=== PATIENT | female | born 1990 | race Caucasian/White ===

== ENCOUNTER 2024-01-15 08:10 | Inpatient (IN) | payer SELFPAY ==
--- OUTSIDE RECORDS SUMMARY | 2024-01-15 08:13 | XMS REPORT | Continuity of Care Document ---
Author Name Unknown Address [address] [place] [address] [address] th[address] Address [address] [facility]. 1 [address] [place] [address] Care Team Providers Care Community Marketing Manager Name Role Phone PCP, PATIENT DOES NOT HAVE A Primary Care Physic nicole Unavailable BINDU CRESPO Attending Clinician Unavailable JOSUE QUACH Attending Clinician Unavailable JOSUE QUACH Attending Clinician Unavailable MELVIN SÁNCHEZ Attending Clinician Unavailable JULITA ZARCO Attending Clinician Unavailable CORINE CHAPA Attending Clinician UnavailEARL Hugo Admitting Clinician UnavailJOSUE Sanchez Admitting Clinician Unavailable Payers Payer Name Policy Type Policy Number Effective Date Expirati on Date Source [facility] MEDICAID [id number] 2019 00:00:00 Allergies, Adverse Reactions, Alerts Allergy Name Allergy Type Status Severity Reaction(s) Onset Date Inactive Date Treating Clinician Comments Source NO KNOWN ALLERGIE S Drug Class Active [facility] Encounters Start Date/Time End Date/Time Encounter Type Admission Type Attending Clinicians Care Facility Care Department Encounter ID Source 2020-12-11 07:28:39 Outpatient P [facility] [id number] [facility] 2020-12-11 07:28:02 Outpatient P [facility] [id number] [facility] 2020-12-11 00:26:53 Outpatient P [facility] [id number] [facility] 2024-01-08 11:00:00 2024-01-08 11:00:00 Outpatient BINDU CHAIDEZ [facility] [id number] [facility] 2024-01-05 09:30:00 2024-01-05 09:30:00 Outpatient R JOSUE QUACH JOSUE [facility] [id number] [facility] 2020-04-13 10:30:00 2020-04-13 10:30:00 Outpatient R MELVIN SÁNCHEZ [facility] [id number] [facility] 2019-10-14 11:15:00 2019-10-14 11:15:00 Outpatient R MELVIN SÁNCHEZ [facility] [id number] [facility] 2019-09-30 10:45:00 2019-09-30 10:45:00 Outpatient R QUACH JOSUE [facility] [id number] [facility] 2019-09-27 14:15:00 2019-09-27 14:15:00 Outpatient R PHILOMENA JOSUE [facility] [id number] [facility] 2019-09-24 14:30:00 2019-09-24 14:30:00 Outpatient R [facility] [id number] [facility] 2019-09-09 14:15:00 2019-09-09 14:15:00 Outpatient R [facility] [id number] [facility] 2019-09-04 15:15:00 2019-09-04 15:15:00 Outpatient R PHILOMENA JOSUE [facility] [id number] [facility] 2019-08-28 11:15:00 2019-08-28 11:15:00 Outpatient R MELVIN SÁNCHEZ [facility] [id number] [facility] 2019-08-22 11:00:00 2019-08-22 11:00:00 Outpatient R [facility] [id number] [facility] 2019-08-20 13:00:00 2019-08-20 13:00:00 Outpatient JOSUE LYNCH [facility] [id number] [facility] 2019-08-02 11:30:00 2019-08-02 11:30:00 Outpatient R MELVIN SÁNCHEZ [facility] [id number] [facility] 2019-07-24 11:51:00 2019-07-24 15:00:00 Outpatient [facility] [id number] [facility] 2019-07-24 11:15:00 2019-07-24 11:15:00 Outpatient R JOSUE QUACH [facility] [id number] [facility] 2019-07-17 13:00:00 2019-07-17 13:00:00 Outpatient R JOSUE QUACH [facility] [id number] [facility] 2019-07-01 11:30:00 2019-07-01 11:30:00 Outpatient R MELVIN SÁCNHEZ [facility] [id number] [facility] 2019-06-25 13:15:00 2019-06-25 13:15:00 [facility] [id number] 2019-06-14 11:00:00 2019-06-14 11:00:00 Outpatient R [facility] [id number] [facility] 2019-05-23 13:15:00 2019-05-23 13:15:00 [facility] [id number] [facility] 2019-05-20 10:00:00 2019-05-20 10:00:00 Outpatient P [facility] [id number] [facility] 2019-05-17 14:00:00 2019-05-17 14:00:00 Outpatient P [facility] [id number] [facility] 2019-05-10 11:00:00 2019-05-10 11:00:00 Outpatient P [facility] [id number] [facility] 2019-05-09 10:40:00 2019-05-09 10:40:00 Outpatient R JULITA ZARCO [facility] [id number] [facility] 2019-05-08 18:45:00 2019-05-08 18:45:00 Outpatient R CORINE CHAPA [facility] [id number] [facility] 2019-05-03 14:00:00 2019-05-03 14:00:00 Outpatient P [facility] [id number] [facility] 2019-04-25 13:15:00 2019-04-25 13:15:00 Outpatient JOSUE LYNCH [facility] [id number] [facility]
[2024-01-15] MEDS ORDERED: METHYLPREDNISOLONE 125 MG INJ ONE (08:32)
[2024-01-15] MEDS ORDERED: ALBUTEROL 2.5 MG/3 ML NEB SOL ONE (08:32)
[2024-01-15] MEDS ORDERED: IPRATROPIUM BROM 0.5MG/2.5ML ONE (08:32)
[2024-01-15 08:56] LABS: Absolute Lymphocytes (CBC) 1.4 K/uL (0.7-4.9); Absolute Monocytes 0.7 K/uL (0.1-1.3); Absolute Neutrophil 6.7 K/uL (1.8-8.0); Basophils % 0.5 % (0-1.3); Eosinophils % 0.3 % (0-4.4); Hematocrit 38.1 % (36.0-45.0); Hemoglobin 12.3 g/dL (12.0-15.0); Lymphocytes % 15.9 % (15.3-44.8); MCH 25.7 pg (27.0-35.0); MCHC 32.4 g/dL (32.0-36.0); MCV 79.4 fL (80-100); Monocytes % 7.7 % (3.3-12.3); Neutrophils % 75.6 % (41.7-73.7); Platelets 372 thou/uL (152-406); Red Cell Distribution Width 14.8 % (12.1-15.2)
[2024-01-15 09:15] LABS: Anion Gap 10.4 mEq/L (5.0-15.0); Magnesium 1.8 mg/dL (1.6-2.4); Potassium 3.4 mEq/L (3.5-5.1)
[2024-01-15 09:19] LABS: SARS-CoV-2 Antigen CONTROL BLUE LINE VIS/BG OK; SARS-CoV-2 Antigen Rapid Res Negative (Negative)
--- NOTE | 2024-01-15 09:33 | RAD REPORT ---
Procedure: Chest Pa And Lat (2 Views) HISTORY: Cough COMPARISON: none FINDINGS: The lungs appear clear of acute infiltrate. No significant pleural effusion noted. The heart is normal size. IMPRESSION: No acute abnormality is displayed.
[2024-01-15] MEDS ORDERED: NA CHLORIDE 0.9% 1,000 ML ONE (09:58)
[2024-01-15 10:18] LABS: Specific Gravity 1.028 (1.005-1.030)
--- NOTE | 2024-01-15 10:31 | EDPHYS ---
Physician Documentation [facility] Name: Aishwarya Munoz Age: 33 yrs Sex: Female : 1990 Arrival Date: 01/15/2024 Time: 08:10 Bed 16 Private MD: ED Physician Waldemar Cook HPI: 01/14 08:26 This 33 yrs old Female presents to ER via Ambulatory with complaints of Shortness Of sb4 Breath, Cough. 08:26 patient reports feeling sick for about 1 week now but is not getting any better. now sb4 feels short of breath with minimal exertion. reports deep, painful, nonproductive cough. denies any sore throat, ear pain, GI symptoms. had similar symptoms and was diagnosed with bronchitis. has been taking dayquil and flovent without significant relief in symptms. 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 - Infectious Disease History:: Denies. - Social history:: Smoking status: Reported history of juuling and/or vaping. ROS: 08:26 Constitutional: Negative for fever, chills, and weight loss, sb4 08:26 Respiratory: Positive for cough, dyspnea on exertion, shortness of breath, 08:26 All other systems are negative, Exam: 08:26 Head/Face: Normocephalic, atraumatic. Eyes: Extra-ocular motions intact. Periorbital sb4 areas with no swelling, redness, or edema. ENT: Mucous membranes moist. 08:26 Skin: Warm, dry with normal turgor. Normal color with no rashes, no lesions, and no evidence of cellulitis. 08:26 Constitutional: The patient appears alert, awake, obese, 08:26 Cardiovascular: Rate: tachycardic, Rhythm: regular, 08:26 Respiratory: mild respiratory distress is noted, Respirations: tachypnea, that is mild, Breath sounds: bronchial sounds, that are moderate, are heard in the right posterior upper lobe, right posterior middle lobe and right posterior lower lobe, Respiratory rate: 20 Vital Signs: 08:15 BP 150 / 80; Pulse 122; Resp 20 S; Temp 97.4; Pulse Ox 94% on R/A; Weight 182.34 kg; iw Height 5 ft. 5 in. ; 08:50 BP 145 / 73; Pulse 112; Resp 19 S; Pulse Ox 93% on R/A; kc6 10:08 Weight 183.7 kg (M); kc6 10:12 BP 118 / 73; Pulse 115; Resp 20 S; Pulse Ox 93% on 2.5 lpm NC; kc6 11:18 BP 128 / 71; Pulse 105; Resp 19 S; Pulse Ox 93% on 2.5 lpm NC; kc6 13:16 BP 124 / 79; Pulse 100; Resp 19 S; Temp 98.2(O); Pulse Ox 94% on 2.5 lpm NC; kc6 08:15 Body Mass Index 66.90 (183.70 kg, 165.1 cm) iw MDM: 08:18 Medical Screening Exam initiated sb4 10:29 Antibiotic administration: Rocephin and Zithromax given. The patient's pulmonary sb4 embolism risk score was calculated as follows: the patients heart rate is greater than 100 beats per minute (1.5 Pts) Total Score: 0-2 points. This patient was found to be at low risk for a pulmonary embolism by using the Well's assessment criteria. Data reviewed: vital signs, nurses notes, lab test result(s), radiologic studies, I have discussed the patient's presentation/case with the attending Emergency Department Physician; and as a result, I will admit patient. Consideration of Admission/Observation Patient was admitted/placed on observation. Counseling: I had a detailed discussion with the patient and/or guardian regarding the historical points, exam findings, and any diagnostic results supporting the discharge/admit diagnosis, lab results, radiology results, the need for further work-up and treatment in the hospital. 10:54 Test considered but Not performed: CT: patient is over the weight limit. Other Details sb4 VQ scan- patient is over the weight limit and nuclear medicine is unavailable today. Care significantly affected by the following chronic conditions: Obesity. 01/14 08:26 Order name: CBC with Diff; Complete Time: 08:57 sb4 01/14 08:26 Order name: BMP; Complete Time: 09:16 sb4 01/14 08:26 Order name: Magnesium; Complete Time: 09:16 sb4 01/14 08:26 Order name: Flu; Complete Time: 09:53 sb4 01/14 08:26 Order name: SARS RAPID; Complete Time: 09:23 sb4 01/14 09:35 Order name: Test, Urine; Complete Time: 10:20 sb4 01/14 10:13 Order name: DD; Complete Time: 11:35 sb4 01/14 10:24 Order name: Blood Culture Adult (2) sb4 01/14 10:24 Order name: Lactate w/ 2H reflex if indic.; Complete Time: 11:42 sb4 01/14 10:24 Order name: LFT's; Complete Time: 11:42 sb4 01/14 11:25 Order name: Protime (+INR); Complete Time: 11:35 EDMS 01/14 11:25 Order name: PTT, Activated Partial Thromb; Complete Time: 11:35 EDMS 01/14 11:53 Order name: Urinalysis w/ reflexes EDMS 01/14 11:54 Order name: Respiratory Syncytial Virus Ag EDMS 01/14 11:54 Order name: Basic Metabolic Panel EDMS 01/14 11:54 Order name: Basic Metabolic Panel EDMS 01/14 11:54 Order name: CBC with Automated Diff EDMS 01/14 11:54 Order name: CBC with Automated Diff EDMS 01/14 11:57 Order name: Urinalysis w/ reflexes EDMS 01/14 11:59 Order name: Procalcitonin EDMS 01/14 11:59 Order name: Procalcitonin; Complete Time: 14:09 EDMS 01/14 08:26 Order name: Chest Pa And Lat (2 Views) XRAY; Complete Time: 09:34 sb4 01/14 08:26 Order name: IV Start; Complete Time: 08:50 sb4 Administered Medications: 08:50 Drug: DuoNeb Nebulize (3:1) (2.5 mg - 0.5 mg) 3 ml Nebulizer once Route: Nebulizer; kc6 13:17 Follow up: Response: No adverse reaction kc6 08:50 Drug: MethylPrednisoLONE IVP 125 mg IVP once Route: IVP; Site: left hand; kc6 13:17 Follow up: Response: No adverse reaction kc6 10:08 Drug: NS 0.9% IV 1000 ml IV at 1000 ml once; to be given as a bolus over 60 minutes kc6 Route: IV; Rate: 1000 ml; Site: left hand; 13:17 Follow up: Response: No adverse reaction; IV Status: Completed infusion; IV Intake: kc6 1000ml 11:16 Drug: AZITHromycin IVPB 500 mg IVPB once over 1 hrs; (mix in 250 mL NS) Route: IVPB; kc6 Infused Over: 1 hrs; Site: left hand; 13:15 Follow up: Response: No adverse reaction; IV Status: Completed infusion; IV Intake: kc6 250ml 11:16 Drug: Rocephin IV 1 grams IV at calculated rate once; Given slow IV push per pharmacy kc6 instructions Route: IV; Rate: calculated rate; Site: left hand; 13:15 Follow up: Response: No adverse reaction; IV Status: Completed infusion; IV Intake: [id number] Disposition: 16:27 I was immediately available on-site in the Emergency Department for consultation in the sd3 care of the patient. Disposition Summary: 01/15/24 10:31 Hospitalization Ordered Notes: Hospitalization Status: Inpatient Admission sb4 Provider: Marilyn Cruz sb4 Condition: Fair sb4 Problem: new sb4 Symptoms: are unchanged sb4 Bed/Room Type: Standard sb4 Location: Telemetry/MedSurg (Inpatient)(01/15/24 13:29) kb3 Room Assignment: 205(01/15/24 13:50) bd Diagnosis - Hypoxemia sb4 - Other pneumonia, unspecified organism sb4 - Morbid (severe) obesity due to excess calories sb4 Forms: - Medication Reconciliation Form sb4 - SBAR form sb4 - Leadership Thank You Letter sb4 Signatures: Dispatcher [employer] EDMS Donya Melendez Irene, RN RN iw Sims, Marcus, DO DO ms3 Arielle Rivera RN RN kc6 Casandra Luke RN RN kb3 Doreen Townsend PA-C PARocio sb4 Corrections: (The following items were deleted from the chart) 08:26 08:26 CBC+H.LAB.BRZ ordered. EDMS EDMS 08:26 08:26 BASIC METABOLIC PANEL+C.LAB.BRZ ordered. EDMS EDMS 08:26 08:26 MAGNESIUM+C.LAB.BRZ ordered. EDMS EDMS 08: 08:26 Influenza Screen (A \T\ B)+BA.LAB.BRZ ordered. EDMS EDMS 08: 08:26 SARS-COV-2 Antigen Rapid+I.LAB.BRZ ordered. EDMS EDMS 08: 08:26 Chest Pa And Lat (2 Views)+RAD.RAD.BRZ ordered. EDMS EDMS 09:52 09:35 Thorax Wo Con+CT.RAD.BRZ ordered. EDMS EDMS 11:23 10:24 PROTIME (+INR)+COAG.LAB.BRZ ordered. EDMS EDMS 11:23 10:24 PTT, ACTIVATED+COAG.LAB.BRZ ordered. EDMS EDMS 12:59 10:31 Telemetry/MedSurg (Inpatient) sb4 bd 12:59 10:31 sb4 bd 13:29 12:59 BR ER HOLD bd kb3 13:29 12:59 ERHOLD- bd kb3 13:50 13:29 409 kb3 bd
--- NOTE | 2024-01-15 10:31 | ER ---
Nurse's Notes [facility] Name: Aishwarya Munoz Age: 33 yrs Sex: Female : 1990 Arrival Date: 01/15/2024 Time: 08:10 Bed 16 Private MD: Diagnosis: Hypoxemia;Other pneumonia, unspecified organism;Morbid (severe) obesity due to excess calories Presentation: 01/14 08:15 Chief complaint: Patient states: started Monday with fever, chills, cough, gets SOB on iw exertion. Coronavirus screen: Client presents with at least one sign or symptom that may indicate coronavirus-19. Ebola Screen: No symptoms or risks identified at this time. Initial Sepsis Screen: Does the patient meet any 2 criteria? HR > 90 bpm. Does the patient have a suspected source of infection?. Risk Assessment: Do you want to hurt yourself or someone else? Patient reports no desire to harm self or others. Onset of symptoms was January 07, 2024. 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 - Infectious Disease History:: Denies. - Social history:: Smoking status: Reported history of juuling and/or vaping. Screenin:50 [facility] ED Fall Risk Assessment (Adult) History of falling in the last 3 months, kc6 including since admission No falls in past 3 months (0 pts) Confusion or Disorientation No (0 pts) Intoxicated or Sedated No (0 pts) Impaired Gait No (0 pts) Mobility Assist Device Used No (0 pt) Altered Elimination No (0 pt) Score/Fall Risk Level 0 - 2 = Low Risk Oriented to surroundings, Maintained a safe environment. Abuse screen: Denies threats or abuse. Denies injuries from another. Nutritional screening: No deficits noted. Tuberculosis screening: No symptoms or risk factors identified. Assessment: 08:51 General: Appears in no apparent distress. comfortable, obese, well groomed, well kc6 developed, Behavior is calm, cooperative, appropriate for age. Pain: Denies pain. Neuro: Level of Consciousness is awake, alert, obeys commands, Oriented to person, place, time, situation, Appropriate for age. Cardiovascular: Denies chest pain, Capillary refill < 3 seconds Rhythm is sinus tachycardia. Respiratory: Reports shortness of breath on exertion cough that is non-productive, dry, Airway is patent Trachea midline Respiratory effort is even, unlabored, Respiratory pattern is regular, symmetrical. GI: No signs and/or symptoms were reported involving the gastrointestinal system. : No signs and/or symptoms were reported regarding the genitourinary system. EENT: No signs and/or symptoms were reported regarding the EENT system. Derm: No signs and/or symptoms reported regarding the dermatologic system. Skin is intact, is healthy with good turgor, Skin is pink, warm \T\ dry. Musculoskeletal: No signs and/or symptoms reported regarding the musculoskeletal system. Circulation, motion, and sensation intact. Capillary refill < 3 seconds, Range of motion: intact in all extremities. 09:51 Reassessment: Patient appears in no apparent distress at this time. No changes from kc6 previously documented assessment. Patient and/or family updated on plan of care and expected duration. Pain level reassessed. Patient is alert, oriented x 3, equal unlabored respirations, skin warm/dry/pink. 10:51 Reassessment: Patient appears in no apparent distress at this time. No changes from kc6 previously documented assessment. Patient and/or family updated on plan of care and expected duration. Pain level reassessed. Patient is alert, oriented x 3, equal unlabored respirations, skin warm/dry/pink. 11:51 Reassessment: Patient appears in no apparent distress at this time. No changes from kc6 previously documented assessment. Patient and/or family updated on plan of care and expected duration. Pain level reassessed. Patient is alert, oriented x 3, equal unlabored respirations, skin warm/dry/pink. 12:51 Reassessment: Patient appears in no apparent distress at this time. No changes from kc6 previously documented assessment. Patient and/or family updated on plan of care and expected duration. Pain level reassessed. Patient is alert, oriented x 3, equal unlabored respirations, skin warm/dry/pink. Vital Signs: 08:15 BP 150 / 80; Pulse 122; Resp 20 S; Temp 97.4; Pulse Ox 94% on R/A; Weight 182.34 kg; iw Height 5 ft. 5 in. ; 08:50 BP 145 / 73; Pulse 112; Resp 19 S; Pulse Ox 93% on R/A; kc6 10:08 Weight 183.7 kg (M); kc6 10:12 BP 118 / 73; Pulse 115; Resp 20 S; Pulse Ox 93% on 2.5 lpm NC; kc6 11:18 BP 128 / 71; Pulse 105; Resp 19 S; Pulse Ox 93% on 2.5 lpm NC; kc6 13:16 BP 124 / 79; Pulse 100; Resp 19 S; Temp 98.2(O); Pulse Ox 94% on 2.5 lpm NC; kc6 08:15 Body Mass Index 66.90 (183.70 kg, 165.1 cm) iw ED Course: 08:13 Patient arrived in ED. mg5 08:14 Doreen Townsend PA-C is PHCP. sb4 08:14 Waldemar Cook DO is Attending Physician. sb4 08:16 Triage completed. iw 08:17 Arm band placed on. iw 08:30 Arielle Rivera, LIV is Primary Nurse. kc6 08:50 Patient has correct armband on for positive identification. Bed in low position. Call kc6 light in reach. Side rails up X2. Pulse ox on. NIBP on. Door closed. Noise minimized. Lights dimmed. Pillow given. 08:50 Inserted saline lock: 22 gauge in left hand, using aseptic technique. Blood collected. kc6 Flushed with 10 mL NS. 09:28 Chest Pa And Lat (2 Views) XRAY In Process Unspecified. EDMS 10:08 Test, Urine Sent. kc6 10:30 Marilyn Cruz is Hospitalizing Provider. sb4 13:16 No provider procedures requiring assistance completed. Patient admitted, IV remains in kc6 place. Administered Medications: 08:50 Drug: DuoNeb Nebulize (3:1) (2.5 mg - 0.5 mg) 3 ml Nebulizer once Route: Nebulizer; kc6 13:17 Follow up: Response: No adverse reaction kc6 08:50 Drug: MethylPrednisoLONE IVP 125 mg IVP once Route: IVP; Site: left hand; kc6 13:17 Follow up: Response: No adverse reaction kc6 10:08 Drug: NS 0.9% IV 1000 ml IV at 1000 ml once; to be given as a bolus over 60 minutes kc6 Route: IV; Rate: 1000 ml; Site: left hand; 13:17 Follow up: Response: No adverse reaction; IV Status: Completed infusion; IV Intake: kc6 1000ml 11:16 Drug: AZITHromycin IVPB 500 mg IVPB once over 1 hrs; (mix in 250 mL NS) Route: IVPB; kc6 Infused Over: 1 hrs; Site: left hand; 13:15 Follow up: Response: No adverse reaction; IV Status: Completed infusion; IV Intake: kc6 250ml 11:16 Drug: Rocephin IV 1 grams IV at calculated rate once; Given slow IV push per pharmacy kc6 instructions Route: IV; Rate: calculated rate; Site: left hand; 13:15 Follow up: Response: No adverse reaction; IV Status: Completed infusion; IV Intake: [id number] Medication: 13:16 VIS not applicable for this client. kc6 Intake: 13:15 IV: 250ml; Total: 250ml. kc6 13:15 IV: 10ml; Total: 260ml. kc6 13:17 IV: 1000ml; Total: 1260ml. kc6 Outcome: 10:31 Decision to Hospitalize by Provider. sb4 13:16 Admitted to ER Hold. Please see [facility] for further documentation. kc6 13:16 Condition: good 13:16 Instructed on the need for admit, 15:39 Patient left the ED. iw Signatures: Dispatcher [employer] Latosha Servin RN RN iw Campbell, Kaitlyn, RN RN [email or web address] Doreen Townsend, PADanyellC PA-C sb4 Anai Blanchard mg5 Corrections: (The following items were deleted from the chart) 08:17 08:15 BP 150 / 80; Pulse 122bpm; Resp 20bpm; Spontaneous; Pulse Ox 94% RA; Temp 97.4F; iw iw
--- NOTE | 2024-01-15 10:51 | P.HP ---
Certification for Inpatient Patient admitted to: Observation <Jenise Olmos - Last Filed: 01/15/24 16:26> Patient History Date of Service: 01/15/24 Reason for admission: Shortness of breath History of Present Illness: 33-year-old female with a past medical history of morbid obesity, presents to the emergency room with shortness of breath. She reports shortness of breath started about a week ago, has been persistent, not getting any better, she reports shortness of breath worse with exertion, nonproductive cough,, she reports several and her family have been sick. She denies fever, chest pain, abdominal pain, nausea vomiting diarrhea, no reported history of asthma, COPD, tobacco use. Plan to admit for acute hypoxic respiratory failure secondary to pneumonia ER evaluation treated with nebs, steroids, IV azithromycin, Rocephin, vital signs sinus tachycardia 150 / 80; Pulse 122; Resp 20 S; Temp 97.4; Pulse Ox 94% on R/A; Weight 182.34 kg; Height 5 ft. 5 in. chest x-ray IMPRESSION: No acute abnormality is displayed. D-dimer slightly elevated, no reported chest pain, hemoptysis, - Past Medical/Surgical History -: Morbid obesity BMI 67 -: -: Tonsillectomy <Jenise Olmos - Last Filed: 01/15/24 16:26> Date of Service: 01/15/24 <ANNETTE Cruz - Last Filed: 01/15/24 17:23> Allergies No Known Allergies Allergy (Unverified 01/15/24 12:13) Review of Systems 10-point ROS is otherwise unremarkable General: As per HPI <Jenise Olmos - Last Filed: 01/15/24 16:26> Physical Examination - Physical Exam General: Alert, Oriented x3, Mild distress, Other (Morbid obesity) HEENT: Atraumatic, Normocephalic Neck: Supple, 2+ carotid pulse no bruit Respiratory: Normal air movement, Diminished, Other (Hypoxic on room air) Cardiovascular: Normal pulses, Normal S1 S2, Other (Sinus tachycardia) Capillary refill: <2 Seconds Gastrointestinal: Normal bowel sounds, Soft and benign, Other (Obese) Musculoskeletal: No contractures, No erythema Integumentary: No significant lesion, No tenderness/swelling Neurological: Normal speech, Normal strength at 5/5 x4 extr, Cranial nerves 3-12 intact - Studies Laboratory Data (last 24 hrs) 01/15/24 01/15/24 08:47 08:47 WBC 8.80 Hgb 12.3 Hct 38.1 Plt Count 372 Sodium 134 L Potassium 3.4 L BUN 7 Creatinine 0.68 Glucose 117 H Magnesium 1.8 Microbiology Data (last 24 hrs): 01/15/24 08:47 Nasopharnyx Influenza Type A Antigen Screen - Final 01/15/24 08:47 Nasopharnyx Influenza Type B Antigen Screen - Final <Jenise Olmos - Last Filed: 01/15/24 16:26> - Studies Laboratory Data (last 24 hrs) 01/15/24 01/15/24 01/15/24 11:10 11:10 11:10 WBC Hgb Hct Plt Count PT Cancelled 13.6 H INR Cancelled 1.22 APTT Cancelled 28.8 Sodium Potassium BUN Creatinine Glucose Magnesium Total Bilirubin 0.7 AST 32 ALT 40 Alkaline Phosphatase 69 01/15/24 01/15/24 08:47 08:47 WBC 8.80 Hgb 12.3 Hct 38.1 Plt Count 372 PT INR APTT Sodium 134 L Potassium 3.4 L BUN 7 Creatinine 0.68 Glucose 117 H Magnesium 1.8 Total Bilirubin AST ALT Alkaline Phosphatase Microbiology Data (last 24 hrs): 01/15/24 08:47 Nasopharnyx Influenza Type A Antigen Screen - Final 01/15/24 08:47 Nasopharnyx Influenza Type B Antigen Screen - Final <CruzANNETTE - Last Filed: 01/15/24 17:23> Assessment and Plan - Problems (Diagnosis) (1) Acute hypoxic respiratory failure Current Visit: Yes Status: Acute (2) Pneumonia Current Visit: Yes Status: Acute Qualifiers: Pneumonia type: due to unspecified organism (3) Morbidly obese Current Visit: Yes Status: Acute - Plan Assessment Admit to MedSurg, telemetry, IV antibiotics, IV fluids, nebs, steroids, O2 keep sats greater than 92%, home O2 eval prior to discharge COVID-negative, Full code Regular diet DVT SCDs Disposition Home independent prior - Advance Directives Does patient have a Living Will: No Does patient have a Durable POA for Healthcare: No - Code Status/Comfort Care Code Status: Full Code Critical Care: No Time Spent Managing Pts Care (In Minutes): 55 <Jenise Olmos - Last Filed: 01/15/24 16:26> - Plan Likely a viral bronchitis with early stage of pneumonia, no clinical suspicion for pulmonary embolism, I will continue on empiric antibiotics with levofloxacin, DuoNeb, antitussive, supplemental oxygen, will try to wean her off the oxygen once her symptom improves. <ANNETTE Cruz - Last Filed: 01/15/24 17:23>
[2024-01-15] MEDS ORDERED: CEFTRIAXONE 1000 MG/VIAL ONE (10:52)
[2024-01-15] MEDS ORDERED: AZITHROMYCIN 500 MG INJ IVPB ONE (10:53)
[2024-01-15] MEDS ORDERED: NA CHLORIDE 0.9% 250 ML ONE (10:53)
[2024-01-15 11:32] LABS: D-Dimer 0.66 FEUug/mL (0-0.500); PT Prothrombin Time 13.6 SECONDS (9.4-12.5); PTT, Activated Partial Thromb 28.8 SECONDS (24.3-36.9); Protime INR 1.22
[2024-01-15 11:40] LABS: Albumin 2.9 g/dL (3.4-5.0); Albumin/Globulin Ratio 0.6 (1.1-1.8); Bilirubin Direct 0.3 mg/dL (0-0.2); Bilirubin Indirect, Calculated 0.4 mg/dL (0.2-0.8); Bilirubin Total 0.7 mg/dL (0.2-1.0); Globulin 4.9 g/dL (2.3-3.5); Protein, Total 7.8 g/dL (6.4-8.2)
[2024-01-15] MEDS ORDERED: ALBUTEROL 2.5 MG/3 ML NEB SOL NEB PRN (11:47)
[2024-01-15] MEDS ORDERED: ONDANSETRON 4 MG/2 ML VIAL IV PRN (11:47)
[2024-01-15] MEDS ORDERED: ACETAMINOPHEN 500 MG TAB PO PRN (11:47)
[2024-01-15] MEDS: IPRATROPIUM BROM 0.5MG/2.5ML NEB SCH (13:00)
[2024-01-15] MEDS: BENZONATATE 100 MG CAP PO SCH (14:00)
[2024-01-15 16:15] VITALS: BMI 68.6
[2024-01-15] MEDS: D5.45NS W/KCL 20MEQ 1,000 ML IV SCH (16:56)
[2024-01-15] MEDS: ZOLPIDEM TARTRATE 5 MG TABLET PO PRN (22:27)
[2024-01-15] MEDS: GUAIFENESIN/CODEINE 5ML UCUP PO PRN (23:51)
[2024-01-16 06:24] LABS: Absolute Lymphocytes (CBC) 1.8 K/uL (0.7-4.9); Absolute Monocytes 0.8 K/uL (0.1-1.3); Absolute Neutrophil 6.7 K/uL (1.8-8.0); Basophils % 0.5 % (0-1.3); Eosinophils % 0.1 % (0-4.4); Hematocrit 41.2 % (36.0-45.0); Hemoglobin 13.3 g/dL (12.0-15.0); Lymphocytes % 19.5 % (15.3-44.8); MCH 26.1 pg (27.0-35.0); MCHC 32.4 g/dL (32.0-36.0); MCV 80.5 fL (80-100); MPV 7.5 fL (7.6-11.3); Neutrophils % 70.9 % (41.7-73.7); Nucleated Red Blood Cells % 0.2 % (0-0); Platelets 403 thou/uL (152-406); RBC Red Blood Cell Count 5.11 M/uL (3.86-4.86); Red Cell Distribution Width 14.6 % (12.1-15.2)
[2024-01-16 06:30] LABS: Anion Gap 7.8 mEq/L (5.0-15.0); Potassium 3.8 mEq/L (3.5-5.1)
[2024-01-16] MEDS: POTASSIUM CL SA 10 MEQ TAB PO ONE (08:06)
[2024-01-16] MEDS: ENOXAPARIN 40 MG/0.4 ML SQ SCH (08:07)
[2024-01-16] MEDS: Levofloxacin 750mg IV 750 MG/150 ML BAG IV SCH (09:52)
--- NOTE | 2024-01-16 13:17 | P.PN ---
Subjective Date of Service: 01/16/24 Chief Complaint: Shortness of breath Subjective: Improving She said her cough shortness of breath gradually improving, able to sleep and tolerating oral diet well. Denied any chest pain or leg swelling Review of Systems Other: Consitutional; fever(-), chills (-), rigor(-), night sweat(-), unintentional weight loss(-) HEENT; diplopia (-), rhinorrhea (-), epistaxis (-), otorrhea (-), otalgia (-) Respiratory; shortness of breath (+), wheezing (-), cough (+), sputum (-), pleuritic chest pain (-) Cardiovascular; chest pain (-), peripheral edema (-), paroxysmal nocturnal dyspnea (-), orthopnea (-) Gastrointestinal; nausea (-), vomiting (-), abdominal pain (-), diarrhea (-), constipation (-), melena (-), hematochezia (-) Urinary; urinary frequency (-), dysuria (-), urgency (-), flank pain (-), gross hematuria (-), incontinence (-) Skin; rash (-), pruritus (-) 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 General: Not acutely ill looking, in no apparent distress,. HEENT: Normocephalic, atraumatic, nonicteric sclera, nonanemic conjunctive. Neck: Supple, without JVD or goiter or thyroid mass. Respiratory: Normal breathing effort, clear to auscultation bilaterally, no crackles no wheezing or rhonchi. Cardiovascular: Regular rate and rhythm, S1, S2 normal, no murmur no gallop. Gastrointestinal: Normal bowel sounds, nondistended, nontender, No ascites, , No masses, no hepatosplenomegaly. Extremities l: No clubbing, No peripheral edema, full range of motion, no deformity, no muscle atrophy. Integumentary: No rashes, petechia, suspected lesions. Lymphatics: No axilla or cervical lymphadenopathy. Neurology; alert awake oriented x3, no focal neurologic deficit, normal affection . mood and behavior. - Studies Microbiology Data (last 24 hrs): 01/15/24 08:47 Nasopharnyx Influenza Type A Antigen Screen - Final 01/15/24 08:47 Nasopharnyx Influenza Type B Antigen Screen - Final Assessment And Plan - Plan This is a 33 years old female patient with past medical history notable for morbid obesity who presented to emergency room for flulike symptoms for few days including cough, shortness of breath, her family has a similar symptom, she was found to have borderline hypoxia at emergency room requiring 3 L of nasal cannula and admitted on medical floor. #1 acute mild hypoxic respite failure secondary #2 Her oxygen requirement gradually declining, will taper her off the oxygen with oximetry monitor #2 Likely a viral bronchitis with early stage of pneumonia, Chest x-ray shows no definite pneumonia, unable to get CT scan due to her body habitus, test negative for influenza, COVID-19, RSV Remained afebrile, no leukocytosis, procalcitonin level less than 0.05 no clinical suspicion for pulmonary embolism, will continue on empiric antibiotics with levofloxacin, DuoNeb, antitussive, I will discontinue IV fluid today Disposition; possible discharge home in couple of days
[2024-01-17 05:19] LABS: Anion Gap 9.4 mEq/L (5.0-15.0); Potassium 3.4 mEq/L (3.5-5.1)
[2024-01-17] MEDS: POTASSIUM 25 MEQ EFFERV TAB PO ONE (05:44)
[2024-01-17] MEDS: ACETAMINOPHEN 325 MG TABLET PO PRN (07:37)
[2024-01-17 08:53] VITALS: O2SAT 94
[2024-01-17 08:55] VITALS: BP 106/66; TEMP 97.7
--- NOTE | 2024-01-17 09:47 | P.DS ---
Admission Date: 01/15/24 Discharge Date: 01/17/24 Disposition: ROUTINE DISCHARGE Discharge Condition: GOOD Reason for Admission: Shortness of breath Brief History of Present Illness: This is a 33 years old female patient with past medical history notable for morbid obesity who presented to emergency room for flulike symptoms for few days including cough, shortness of breath, her family has a similar symptom, she was found to have borderline hypoxia at emergency room requiring 3 L of nasal cannula and admitted on medical floor. Hospital Course: She was treated with IV levofloxacin, scheduled DuoNeb, antitussive and responded very well. Patient remained afebrile, no leukocytosis. Patient was able to taper off oxygen and good oxygenation over 95% by pulse oximetry on room air at discharge. 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 General: Not acutely ill looking, in no apparent distress,. HEENT: Normocephalic, atraumatic, nonicteric sclera, nonanemic conjunctive. Neck: Supple, without JVD or goiter or thyroid mass. Respiratory: Normal breathing effort, clear to auscultation bilaterally, no crackles no wheezing or rhonchi. Cardiovascular: Regular rate and rhythm, S1, S2 normal, no murmur no gallop. Gastrointestinal: Normal bowel sounds, nondistended, nontender, No ascites, , No masses, no hepatosplenomegaly. Extremities l: No clubbing, No peripheral edema, full range of motion, no deformity, no muscle atrophy. Integumentary: No rashes, petechia, suspected lesions. Lymphatics: No axilla or cervical lymphadenopathy. Neurology; alert awake oriented x3, no focal neurologic deficit, normal affection . mood and behavior. Laboratory Data at Discharge: WBC 9.40 thou/uL (4.3-10.9) 01/16/24 05:58 Hgb 13.3 g/dL (12.0-15.0) D 01/16/24 05:58 Hct 41.2 % (36.0-45.0) 01/16/24 05:58 Plt Count 403 thou/uL (152-406) 01/16/24 05:58 PT 13.6 SECONDS (9.4-12.5) H 01/15/24 11:10 PT Cancelled 01/15/24 11:10 INR 1.22 01/15/24 11:10 INR Cancelled 01/15/24 11:10 APTT 28.8 SECONDS (24.3-36.9) 01/15/24 11:10 APTT Cancelled 01/15/24 11:10 Sodium 140 mEq/L (136-145) 01/17/24 04:44 Potassium Cancelled 01/17/24 Unknown BUN 13 mg/dL (7-18) 01/17/24 04:44 Creatinine 0.69 mg/dL (0.55-1.02) 01/17/24 04:44 Glucose 102 mg/dL (74-106) 01/17/24 04:44 Magnesium 1.8 mg/dL (1.6-2.4) 01/15/24 08:47 Total Bilirubin 0.7 mg/dL (0.2-1.0) 01/15/24 11:10 AST 32 U/L (15-37) 01/15/24 11:10 ALT 40 U/L (13-56) 01/15/24 11:10 Alkaline Phosphatase 69 U/L (45-117) 01/15/24 11:10 Home Medications: Albuterol Inhaler [Ventolin Inhaler*] 2 puff IH Q6H PRN #1 01/17/24 Benzonatate [Tessalon Perle*] 200 mg PO TID 7 Days #21 cap 01/17/24 Guaifen W/Codeine Syrup [ROBITUSSIN A-C Syrup*] 10 ml PO QID PRN 5 Days #200 ml 01/17/24 levoFLOXacin [Levofloxacin] 750 mg PO DAILY 2 Days #2 01/17/24 New Medications: levoFLOXacin [Levofloxacin] 750 mg PO DAILY 2 Days #2 Guaifen W/Codeine Syrup [ROBITUSSIN A-C Syrup*] 10 ml PO QID PRN 5 Days #200 ml PRN Reason: Cough Benzonatate [Tessalon Perle*] 200 mg PO TID 7 Days #21 cap Albuterol Inhaler [Ventolin Inhaler*] 2 puff IH Q6H PRN #1 PRN Reason: Shortness Of Breath Followup: NONE,NONE [Primary Care Provider] -
== END 2024-01-17 11:50 | disposition home or self-care (01) | DRG 193 ==
LOC: ER 08:10 → ERHOLD 11:53 → 2ND 15:01
PROVIDERS: ADMIT Internal Medicine; ATTEND Internal Medicine
DX: J18.8 Other pneumonia, unspecified organism (principal); J96.01 Acute respiratory failure with hypoxia; Z68.44 Body mass index [BMI] 60.0-69.9, adult; E66.01 Morbid (severe) obesity due to excess calories; J20.8 Acute bronchitis due to other specified organisms; Z11.52 Encounter for screening for COVID-19; Z87.891 Personal history of nicotine dependence
CPT/HCPCS: 36415; 71046; 80048; 80076; 81025; 82947; 83605; 83735; 84145; 85025; 85379; 85610; 85730; 87040; 87077; 87186; 87205; 87804; 87807; 87811; 94640; 96361; 96365; 96366; 96368; 96375; 99285; J0696; J1650; J2919; J7030; J7050; J7613; J7644

== ENCOUNTER 2024-05-23 20:44 | Emergency (ER) | payer SELFPAY ==
--- OUTSIDE RECORDS SUMMARY | 2024-05-23 20:47 | XMS REPORT | Continuity of Care Document ---
Author Name Unknown Address [address] [facility] [address] [place] [address] [facility] Address [address] 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 Name Role Phone PCP, PATIENT DOES NOT [...] Number Effective Date Expirati on Date Source [employer]ICA[employer] [id number] 2019 00:00:00 Allergies, Adverse Reactions, Alerts Allergy Name Allergy Type Status Severity Reaction(s) Onset Date Inactive Date Treating Clinician Comments Source NO KNOWN ALLERGIE S Drug Class Active [facility] Encounters Start Date/Time End Date/Time Encounter Type Admission Type Attending Clinicians Care Facility Care Department Encounter ID Source 2020-12-11 07:28:39 Outpatient P [facility] [id number] [facility] 2020-12-11 07:28:02 Outpatient P [facility] [id number] [facility] 2020-12-11 00:26:53 Outpatient P [facility] [id number] [facility] 2024-01-08 11:00:00 2024-01-08 11:00:00 Outpatient BINDU CHAIDEZ [facility] [id number] [facility] 2024-01-05 09:30:00 2024-01-05 09:30:00 Outpatient R JOSUE QUACH JOSUE [facility] [id number] [facility] 2020-04-13 10:30:00 2020-04-13 10:30:00 Outpatient R MELVIN SÁNCHEZ [facility] [id number] [facility] 2019-10-14 11:15:00 2019-10-14 11:15:00 Outpatient R MELVIN SÁNCHEZ [facility] [id number] [facility] 2019-09-30 10:45:00 2019-09-30 10:45:00 Outpatient R PHILOMENA JOSUE [facility] [id number] [facility] 2019-09-27 14:15:00 2019-09-27 14:15:00 Outpatient R SWAPNA QUACHEN [facility] [id number] [facility] 2019-09-24 14:30:00 2019-09-24 14:30:00 Outpatient R [facility] [id number] [facility] 2019-09-09 14:15:00 2019-09-09 14:15:00 Outpatient R [facility] [id number] [facility] 2019-09-04 15:15:00 2019-09-04 15:15:00 Outpatient Tonia PHILOMENA JOSUE [facility] [id number] [facility] 2019-08-28 11:15:00 2019-08-28 11:15:00 Outpatient R MELVIN SÁNCHEZ [facility] [id number] [facility] 2019-08-22 11:00:00 2019-08-22 11:00:00 Outpatient R [facility] [id number] [facility] 2019-08-20 13:00:00 2019-08-20 13:00:00 Outpatient JOSUE LYNCH [facility] [id number] [facility] 2019-08-02 11:30:00 2019-08-02 11:30:00 Outpatient R MELVIN SÁNCHEZ [facility] [id number] [facility] 2019-07-24 11:51:00 2019-07-24 15:00:00 Outpatient P JOS[facility] QUACH [facility] [id number] [facility] 2019-07-24 11:15:00 2019-07-24 11:15:00 Outpatient R JOSUE QUACH [facility] [id number] [facility] 2019-07-17 13:00:00 2019-07-17 13:00:00 Outpatient R PHILOMENA JOSUE [facility] [id number] [facility] 2019-07-01 11:30:00 2019-07-01 11:30:00 Outpatient R MELVIN SÁNCHEZ [facility] [id number] [facility] 2019-06-25 13:15:00 2019-06-25 13:15:00 [facility] [id number] 2019-06-14 11:00:00 2019-06-14 11:00:00 Outpatient R [facility] [id number] [facility] 2019-05-23 13:15:00 2019-05-23 13:15:00 Outpatient R MELVIN SÁNCHEZ [facility] [id number] [facility] 2019-05-20 10:00:00 2019-05-20 10:00:00 Outpatient P [facility] [id number] [facility] 2019-05-17 14:00:00 2019-05-17 14:00:00 Outpatient P [facility] [id number] [facility] 2019-05-10 11:00:00 2019-05-10 11:00:00 Outpatient P [facility] [id number] [facility] 2019-05-09 10:40:00 2019-05-09 10:40:00 Outpatient R JULITA ZARCO [facility] [id number] [facility] 2019-05-08 18:45:00 2019-05-08 18:45:00 Outpatient R CORINE CHAPA [facility] [id number] [facility] 2019-05-03 14:00:2019-05-03 14:00:00 Outpatient P [facility] [id number] [facility] 2019-04-25 13:15:00 2019-04-25 13:15:00 Outpatient R JOSUE QUACH [facility] [id number] [facility]
--- NOTE | 2024-05-23 21:17 | ER ---
Nurse's Notes [facility] Name: Aishwarya Munoz Age: 33 yrs Sex: Female : 1990 Arrival Date: 05/23/2024 Time: 20:44 Bed 9 Private MD: Diagnosis: First-degree burn right hand Presentation: 05/23 21:09 Chief complaint: Patient states: was cooking and accidentally touched hot salgado. pain and al5 blistering to R thumb and index finger. Coronavirus screen: At this time, the client does not indicate any symptoms associated with coronavirus-19. Ebola Screen: No symptoms or risks identified at this time. Initial Sepsis Screen: Does the patient meet any 2 criteria? HR > 90 bpm. No. Patient's initial sepsis screen is negative. Does the patient have a suspected source of infection? No. Patient's initial sepsis screen is negative. Risk Assessment: Do you want to hurt yourself or someone else? Patient reports no desire to harm self or others. Onset of symptoms was May 23, 2024. Care prior to arrival: ice pack to injury. 21:09 Method Of Arrival: Ambulatory al5 21:09 Acuity: REYNA 4 al5 Triage Assessment: 21:11 General: Appears in no apparent distress. uncomfortable, Behavior is calm, cooperative. al5 Pain: Complains of pain in dorsal aspect of distal phalanx of right thumb and dorsal aspect of middle phalanx of right index finger Pain currently is 8 out of 10 on a pain scale. EENT: No signs and/or symptoms were reported regarding the EENT system. Neuro: Level of Consciousness is awake, alert, obeys commands, Oriented to person, place, time, situation. Cardiovascular: Capillary refill < 3 seconds Patient's skin is warm and dry. Respiratory: Airway is patent Respiratory effort is even, unlabored, Respiratory pattern is regular, symmetrical. GI: No signs and/or symptoms were reported involving the gastrointestinal system. Abdomen is non-distended, obese. : No signs and/or symptoms were reported regarding the genitourinary system. Derm: blistering to R thumb and index finger. Musculoskeletal: No signs and/or symptoms reported regarding the musculoskeletal system. Injury Description: Burn was sustained 30-60 minutes ago. Patient sustained first-degree burn(s) to dorsal aspect of distal phalanx of right thumb and dorsal aspect of middle phalanx of right index finger. 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 - Infectious Disease History:: Denies. - Social history:: Smoking status: Patient denies any tobacco usage or history of. Screenin:13 [facility] ED Fall Risk Assessment (Adult) History of falling in the last 3 months, al5 including since admission No falls in past 3 months (0 pts) Confusion or Disorientation No (0 pts) Intoxicated or Sedated No (0 pts) Impaired Gait No (0 pts) Mobility Assist Device Used No (0 pt) Altered Elimination No (0 pt) Score/Fall Risk Level 0 - 2 = Low Risk Oriented to surroundings, Maintained a safe environment, Hourly rounding (assess needs \T\ fall precautionary measures) done. Abuse screen: Denies threats or abuse. Denies injuries from another. Nutritional screening: No deficits noted. Tuberculosis screening: No symptoms or risk factors identified. Assessment: 21:13 Reassessment: see triage assessment. al5 Vital Signs: 21:09 BP 160 / 123; Pulse 114; Resp 18; Temp 98.5; Pulse Ox 100% on R/A; Weight 185.97 kg; al5 Height 5 ft. 5 in. ; 21:34 BP 146 / 94; Pulse 100; Resp 18; Pulse Ox 99% ; al5 21:09 Body Mass Index 68.23 (185.97 kg, 165.1 cm) al5 ED Course: 20:45 Patient arrived in ED. jj6 20:52 Andrae Myrick MD is Attending Physician. sp3 21:09 Disha Brewster RN is Primary Nurse. al5 21:10 Triage completed. al5 21:13 Arm band placed on right wrist. Patient placed in the treatment room, in view of staff al5 members, on pulse oximetry. EKG completed in triage. Results shown to MD. EKG completed in triage. Results shown to MD. 21:13 No provider procedures requiring assistance completed. Patient did not have IV access al5 during this emergency room visit. 21:14 Patient has correct armband on for positive identification. Bed in low position. Call al5 light in reach. Provided Education on: plan of care. 21:33 Wound care: ice pack applied. Burn care of first degree burn to dorsal aspect of middle al5 phalanx of right index finger and dorsal aspect of distal phalanx of right thumb triple antibiotic ointment, nonadherent dressing, kerlix. Administered Medications: 21:33 Drug: Trimethoprim-Sulfamethoxazole PO (160 mg-800 mg (DS) 1 tablet PO once Route: PO; al5 21:33 Follow up: Response: No adverse reaction; Medication administered at discharge. al5 Medication: 21:13 VIS not applicable for this client. al5 Outcome: 21:16 Discharge ordered by . sp3 21:34 Discharged to home ambulatory, with significant other, al5 21:34 Condition: good 21:34 Discharge instructions given to patient, significant other, Instructed on discharge instructions, follow up and referral plans. medication usage, wound care, Demonstrated understanding of instructions, follow-up care, medications, wound care, Prescriptions given X 1, 21:34 Patient left the ED. al5 Signatures: Andrae Myrick MD MD sp3 Jolanta Colon jj6 Disha Brewster RN RN al5
--- NOTE | 2024-05-23 21:17 | EDPHYS ---
Physician Documentation [facility] Name: Aishwarya Munoz Age: 33 yrs Sex: Female : 1990 Arrival Date: 05/23/2024 Time: 20:44 Bed 9 Private MD: ED Physician Andrae Myrick HPI: 05/23 21:13 This 33 yrs old Female presents to ER via Ambulatory with complaints of Hand Burn right.sp3 21:13 33-year-old female with no past medical history presents with chief complaint of right sp3 hand pain secondary to burn where she touched a hot frying salgado. Pain is along the thenar area of the palm extending into the thumb and first digit. Small amount of blistering noted however majority of burn is first-degree. She denies any prior injury to the hand or any other rosas anywhere else. ROS otherwise negative.. 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 - Infectious Disease History:: Denies. - Social history:: Smoking status: Patient denies any tobacco usage or history of. ROS: 21:14 Constitutional: Negative for fever, chills, and weight loss, Eyes: Negative for injury, sp3 pain, redness, and discharge, ENT: Negative for injury, pain, and discharge, Neck: Negative for injury, pain, and swelling, Cardiovascular: Negative for chest pain, palpitations, and edema, Respiratory: Negative for shortness of breath, cough, wheezing, and pleuritic chest pain, Abdomen/GI: Negative for abdominal pain, nausea, vomiting, diarrhea, and constipation, Back: Negative for injury and pain, : Negative for injury, bleeding, discharge, and swelling, Neuro: Negative for headache, weakness, numbness, tingling, and seizure, Psych: Negative for depression, anxiety, suicide ideation, homicidal ideation, and hallucinations, Allergy/Immunology: Negative for hives, rash, and allergies, Endocrine: Negative for neck swelling, polydipsia, polyuria, polyphagia, and marked weight changes, Hematologic/Lymphatic: Negative for swollen nodes, abnormal bleeding, and unusual bruising, 21:14 All other systems are negative, Exam: 21:14 Constitutional: This is a well developed, well nourished patient who is awake, alert, sp3 and in no acute distress. Head/Face: Normocephalic, atraumatic. Eyes: Pupils equal round and reactive to light, extra-ocular motions intact. Lids and lashes normal. Conjunctiva and sclera are non-icteric and not injected. Cornea within normal limits. Periorbital areas with no swelling, redness, or edema. Neck: Trachea midline, no thyromegaly or masses palpated, and no cervical lymphadenopathy. Supple, full range of motion without nuchal rigidity, or vertebral point tenderness. No Meningismus. Chest/axilla: Normal chest wall appearance and motion. Nontender with no deformity. No lesions are appreciated. Cardiovascular: Regular rate and rhythm with a normal S1 and S2. No gallops, murmurs, or rubs. Normal PMI, no JVD. No pulse deficits. Respiratory: Lungs have equal breath sounds bilaterally, clear to auscultation and percussion. No rales, rhonchi or wheezes noted. No increased work of breathing, no retractions or nasal flaring. Abdomen/GI: Soft, non-tender, with normal bowel sounds. No distension or tympany. No guarding or rebound. No evidence of tenderness throughout. Back: No spinal tenderness. No costovertebral tenderness. Full range of motion. Neuro: Awake and alert, GCS 15, oriented to person, place, time, and situation. Cranial nerves II-XII grossly intact. Motor strength 5/5 in all extremities. Sensory grossly intact. Cerebellar exam normal. Normal gait. Psych: Awake, alert, with orientation to person, place and time. Behavior, mood, and affect are within normal limits. 21:14 Musculoskeletal/extremity: Right hand erythema consistent with first-degree burn along the palm, thenar compartment and partial thumb and partial index finger. Small amount of blister along medial thumb noted. Distal neurovascular exam is normal. Heart rate is decreased to the 90s and blood pressure is improved as well. Initial vital signs taken at triage.. Vital Signs: 21:09 BP 160 / 123; Pulse 114; Resp 18; Temp 98.5; Pulse Ox 100% on R/A; Weight 185.97 kg; al5 Height 5 ft. 5 in. ; 21:34 BP 146 / 94; Pulse 100; Resp 18; Pulse Ox 99% ; al5 21:09 Body Mass Index 68.23 (185.97 kg, 165.1 cm) al5 MDM: 21:07 Medical Screening Exam initiated sp3 21:15 Data reviewed: vital signs, nurses notes. ED course: Wound care education given to sp3 patient. Will place on Bactrim for infection control. No other intervention indicated at this time.. Administered Medications: 21:33 Drug: Trimethoprim-Sulfamethoxazole PO (160 mg-800 mg (DS) 1 tablet PO once Route: PO; al5 21:33 Follow up: Response: No adverse reaction; Medication administered at discharge. al5 Disposition Summary: 05/23/24 21:16 Discharge Ordered Notes: Location: Home sp3 Condition: Stable sp3 Diagnosis - First-degree burn right hand sp3 Followup: sp3 - With: Private Physician - When: Upon discharge from the Emergency Department - Reason: Continuance of care Discharge Instructions: - Discharge Summary Sheet sp3 - Burn Care, Adult sp3 Forms: - Medication Reconciliation Form sp3 - Antibiotic Education sp3 - Prescription Opioid Use sp3 - Patient Portal Instructions sp3 - Leadership Thank You Letter sp3 Prescriptions: - Bactrim DS 800-160 mg Oral tablet - take 1 tablet ORAL route every 12 hours for 5 days; 10 tablet; Refills: 0, sp3 Product Selection Permitted Signatures: Andrae Myrick MD MD sp3 Disha Brewster RN RN al5
[2024-05-23] MEDS ORDERED: SMZ./TMP. 800/160 MG TABLET ONE (21:29)
[2024-05-23 21:59] VITALS: TEMP 98.5
[2024-05-23 22:04] VITALS: BP 146/94; O2SAT 99
== END 2024-05-23 21:34 | disposition home or self-care (01) ==
LOC: ER 20:44
DX: T23.151A Burn of first degree of right palm, initial encounter (principal)
CPT/HCPCS: 99284

== ENCOUNTER 2024-06-10 12:46 | Observation (INO) | payer SELFPAY ==
--- OUTSIDE RECORDS SUMMARY | 2024-06-10 12:49 | XMS REPORT | Continuity of Care Document ---
Author Name Unknown Address [address] [facility] [address] [place] [address] [facility] Address [address] [facility] [place] [address] Care Team Providers Care Staff Anesthetist Name Role Phone PCP, PATIENT DOES NOT [...] on Date Source [employer] [id number] 2019 00:00:00 Allergies, Adverse Reactions, Alerts Allergy Name Allergy Type Status Severity Reaction(s) Onset Date Inactive Date Treating Clinician Comments Source NO KNOWN ALLERGIE S Drug Class Active [facility] Encounters Start Date/Time End Date/Time Encounter Type Admission Type Attending Clinicians Care Facility Care Department Encounter ID Source 2020-12-11 07:28:39 Outpatient P [facility] [id number] [facility] 2020-12-11 07:28:02 Outpatient P [facility] [id number] [facility] 2020-12-11 00:26:53 Outpatient P [facility] [id number] [facility] 2024-01-08 11:00:00 2024-01-08 11:00:00 Outpatient BINDU CHAIDEZ [facility] [id number] [facility] 2024-01-05 09:30:00 2024-01-05 09:30:00 Outpatient R JOSUE QUACH JOSUE [facility] [id number] [facility] 2020-04-13 10:30:00 2020-04-13 10:30:00 Outpatient R MELVIN SÁNCHEZ [facility] [id number] [facility] 2019-10-14 11:15:00 2019-10-14 11:15:00 Outpatient R MELVIN SÁNCHEZ [facility] [id number] [facility] 2019-09-30 10:45:00 2019-09-30 10:45:00 Outpatient R PHILOMENA JOSUE [facility] [id number] [facility] 2019-09-27 14:15:00 2019-09-27 14:15:00 Outpatient R SWAPNA QUACHEN [facility] [id number] [facility] 2019-09-24 14:30:00 2019-09-24 14:30:00 Outpatient R [facility] [id number] [facility] 2019-09-09 14:15:00 2019-09-09 14:15:00 Outpatient R [facility] [id number] [facility] 2019-09-04 15:15:00 2019-09-04 15:15:00 Outpatient Tonia PHILOMENA JOSUE [facility] [id number] [facility] 2019-08-28 11:15:00 2019-08-28 11:15:00 Outpatient R MELVIN SÁNCHEZ [facility] [id number] [facility] 2019-08-22 11:00:00 2019-08-22 11:00:00 Outpatient R [facility] [id number] [facility] 2019-08-20 13:00:00 2019-08-20 13:00:00 Outpatient JOSUE LYNCH [facility] [id number] [facility] 2019-08-02 11:30:00 2019-08-02 11:30:00 Outpatient R MELVIN SÁNCHEZ [facility] [id number] [facility] 2019-07-24 11:51:00 2019-07-24 15:00:00 Outpatient P [facility] QUACH [facility] [id number] [facility] 2019-07-24 11:15:00 2019-07-24 11:15:00 Outpatient R JOSUE QUACH [facility] [id number] [facility] 2019-07-17 13:00:00 2019-07-17 13:00:00 Outpatient R PHILOMENA JOSUE [facility] [id number] [facility] 2019-07-01 11:30:00 2019-07-01 11:30:00 Outpatient R MELVIN SÁNCHEZ [facility] [id number] [facility] 2019-06-25 13:15:00 2019-06-25 13:15:00 [facility] [id number] [facility] 2019-06-14 11:00:00 2019-06-14 11:00:00 Outpatient R [facility] [id number] [facility] 2019-05-23 13:15:00 2019-05-23 13:15:00 Outpatient R MELVIN SÁNCHEZ [facility] [id number] [facility] 2019-05-20 10:00:00 2019-05-20 10:00:00 Outpatient P [facility] [id number] [facility] 2019-05-17 14:00:00 2019-05-17 14:00:00 Outpatient P [facility] [id number] [facility] 2019-05-10 11:00:00 2019-05-10 11:00:00 Outpatient P [facility] [id number] [facility] 2019-05-09 10:40:00 2019-05-09 10:40:00 Outpatient R JULITA ZARCO [facility] [id number] [facility] 2019-05-08 18:45:00 2019-05-08 18:45:00 Outpatient R CORINE CHAPA [facility] [id number] [facility] 2019-05-03 14:00:2019-05-03 14:00:00 Outpatient P [facility] [id number] [facility] 2019-04-25 13:15:00 2019-04-25 13:15:00 Outpatient R JOSUE QUACH [facility] [id number] [facility]
[2024-06-10 14:27] LABS: Absolute Eosinophils 0.1 K/uL (0-0.5); Absolute Lymphocytes (CBC) 1.4 K/uL (0.7-4.9); Absolute Monocytes 0.4 K/uL (0.1-1.3); Absolute Neutrophil 2.1 K/uL (1.8-8.0); Basophils % 0.9 % (0-1.3); Eosinophils % 2.6 % (0-4.4); Hematocrit 39.4 % (36.0-45.0); Hemoglobin 13.2 g/dL (12.0-15.0); Lymphocytes % 35.3 % (15.3-44.8); MCH 26.3 pg (27.0-35.0); MCHC 33.6 g/dL (32.0-36.0); MCV 78.3 fL (80-100); MPV 6.8 fL (7.6-11.3); Monocytes % 8.8 % (3.3-12.3); Neutrophils % 52.4 % (41.7-73.7); Nucleated Red Blood Cells % 0.2 % (0-0); Platelets 389 thou/uL (152-406); RBC Red Blood Cell Count 5.04 M/uL (3.86-4.86); Red Cell Distribution Width 14.9 % (12.1-15.2)
--- NOTE | 2024-06-10 14:38 | RAD REPORT ---
EXAMINATION: TWO VIEW CHEST XR CLINICAL INDICATION: Female, 33 years old. [facility] MAIN COUGH Bed: TECHNIQUE: 2 view radiographs of the chest were performed. COMPARISON: 01/15/2024 FINDINGS: The lungs are well inflated and clear. No pneumothorax or sizable effusion. The heart is normal in si ze. Mediastinal contours are unremarkable. IMPRESSION: No acute or significant abnormalities.
[2024-06-10 14:51] LABS: Albumin 3.1 g/dL (3.4-5.0); Albumin/Globulin Ratio 0.7 (1.1-1.8); Anion Gap 8.4 mEq/L (5.0-15.0); Bilirubin Total 0.3 mg/dL (0.2-1.0); Globulin 4.6 g/dL (2.3-3.5); Potassium 3.4 mEq/L (3.5-5.1); Protein, Total 7.7 g/dL (6.4-8.2)
[2024-06-10 14:59] LABS: Influenza A Ag Negative; Influenza B Ag Negative; SARS-CoV-2 Antigen Rapid Res Negative (Negative)
[2024-06-10 15:00] LABS: PT Prothrombin Time 12.9 SECONDS (10-13.0); Protime INR 1.14
[2024-06-10] MEDS ORDERED: AZITHROMYCIN 500 MG INJ IVPB ONE (15:40)
[2024-06-10] MEDS ORDERED: CEFTRIAXONE 1000 MG/VIAL ONE (15:40)
[2024-06-10] MEDS ORDERED: NA CHLORIDE 0.9% 500 ML ONE (15:41)
--- NOTE | 2024-06-10 15:44 | EDPHYS ---
Physician Documentation [facility] Name: Aishwarya Munoz Age: 33 yrs Sex: Female : 1990 Arrival Date: 06/10/2024 Time: 12:46 Bed 19 Private MD: ED Physician Abrahan Jacobson HPI: 06/10 13:20 This 33 yrs old Female presents to ER via Ambulatory with complaints of Breathing rn Difficulty, Fever, Cough. 13:20 The patient has shortness of breath with light activity. Onset: The symptoms/episode rn began/occurred. 13:20 Onset: The symptoms/episode began/occurred 4 day(s) ago. The patient's shortness of rn breath is aggravated by coughing, exertion, light activity. Severity of symptoms: At their worst the symptoms were moderate in the emergency department the symptoms are unchanged. The patient has experienced a previous episode. Patient reports fever, cough, shortness of breath for 3 days. Patient reports had similar episode back in January when she was admitted for respiratory difficulty. Does not remember if it was pneumonia or another cause. Patient denies smoking. Reports feels subjective fever and cough, no hemoptysis. No history of DVT or PE. No chronic lung issues.. Historical: - Allergies: 13:01 No Known Allergies; ld1 - Home Meds: 13:01 None [Active]; ld1 - PMHx: 13:01 None; ld1 - PSHx: 13:01 section; Tonsillectomy; ld1 - Immunization history:: Adult Immunizations up to date. - Infectious Disease History:: Denies. - Social history:: Smoking status: Patient denies any tobacco usage or history of. - Family history:: not pertinent. - Hospitalizations: : No recent hospitalization is reported. ROS: 13:20 Constitutional: Positive for subjective fever and chills ENT: negative for sore throat hospital intern: Negative for chest pain, palpitations, and edema, Respiratory: Positive cough and shortness of breath Abdomen/GI: Negative for abdominal pain, nausea, vomiting, diarrhea, and constipation, MS/Extremity: Negative for injury and deformity, Neuro: Positive for generalized weakness Exam: 13:20 Constitutional: This is a well developed, well nourished patient who is awake, alert, rn mild tachypnea Cardiovascular: Tachycardic, regular. No pulse deficits. Respiratory: Mild tachypnea, diminished breath sounds right lung base, no retractions, speaking full sentences otherwise Skin: No cyanosis Neuro: Awake and alert, GCS 15 Vital Signs: 13:00 BP 142 / 90; Pulse 107; Resp 18; Temp 97.5(TE); Pulse Ox 91% on R/A; Weight 185.97 kg; ld1 Height 5 ft. 5 in. ; Pain 0/10; 17:01 BP 137 / 82; Pulse 104; Resp 15; Pulse Ox 93% on R/A; bp 17:58 BP 131 / 81; Pulse 109; Resp 19; Pulse Ox 94% ; bp 13:00 Body Mass Index 68.23 (185.97 kg, 165.1 cm) ld1 13:00 Pain Scale: Adult ld1 MDM: 12:50 Medical Screening Exam initiated rn 15:40 Differential diagnosis: Anemia Anxiety Reaction Bronchitis Myocardial Infarction rn pneumonia, Pneumothorax pulmonary edema. Data reviewed: vital signs, nurses notes, lab test result(s), radiologic studies, plain films, and as a result, I will admit patient. Consideration of Admission/Observation Patient was admitted/placed on observation. Escalation of care including admission/observation considered. Counseling: I had a detailed discussion with the patient and/or guardian regarding the historical points, exam findings, and any diagnostic results supporting the discharge/admit diagnosis, lab results, radiology results, the need for further work-up and treatment in the hospital. Response to treatment: the patient's symptoms have mildly improved after treatment, and as a result, I will admit patient. ED course: Patient still with tachypnea and tachycardia, likely early pneumonia given hypoxemia and dyspnea. Chest x-ray does not show but clinically patient sounds like pneumonia. Put on antibiotics and admit to hospitalist service.. 06/10 12:51 Order name: COVID-19 Ag + Flu A+B Ag; Complete Time: 15:05 rn 06/10 13:07 Order name: Blood Culture Adult (2) rn 06/10 13:07 Order name: CBC with Diff; Complete Time: 14:34 rn 06/10 13:07 Order name: CMP; Complete Time: 15:05 rn 06/10 13:07 Order name: Lactate w/ 2H reflex if indic.; Complete Time: 14:48 rn 06/10 13:07 Order name: Protime (+inr); Complete Time: 15:05 rn 06/10 13:07 Order name: Ptt, Activated; Complete Time: 15:05 rn 06/10 16:01 Order name: Basic Metabolic Panel EDMS 06/10 16:01 Order name: Basic Metabolic Panel EDMS 06/10 16:01 Order name: Basic Metabolic Panel EDMS 06/10 16:01 Order name: Basic Metabolic Panel EDMS 06/10 16:01 Order name: Basic Metabolic Panel EDMS 06/10 16:01 Order name: CBC with Automated Diff EDMS 06/10 16:01 Order name: CBC with Automated Diff EDMS 06/10 16:01 Order name: CBC with Automated Diff EDMS 06/10 16:01 Order name: CBC with Automated Diff EDMS 06/10 16:01 Order name: CBC with Automated Diff EDMS 06/10 16:01 Order name: Procalcitonin EDMS 06/10 16:01 Order name: Procalcitonin EDMS 06/10 12:51 Order name: XRAY Chest Pa And Lat (2 Views); Complete Time: 14:48 rn 06/10 13:07 Order name: EKG; Complete Time: 13:08 rn 06/10 13:07 Order name: Accucheck; Complete Time: 13:47 rn 06/10 13:07 Order name: Cardiac monitoring; Complete Time: 13:47 rn 06/10 13:07 Order name: EKG - Nurse/Tech; Complete Time: 14:15 rn 06/10 13:07 Order name: IV Saline Lock - Large Bore; Complete Time: 14:06 rn 06/10 13:07 Order name: Labs collected and sent; Complete Time: 14:06 rn 06/10 13:07 Order name: O2 Per Protocol; Complete Time: 13:47 rn 06/10 13:07 Order name: O2 Sat Monitoring; Complete Time: 13:47 rn 06/10 13:07 Order name: Vital Signs; Complete Time: 13:47 rn Administered Medications: 15:49 Drug: Zithromax IVPB 500 mg IVPB once over 1 hrs; mix in 250 mL NS Route: IVPB; Infused bp Over: 1 hrs; Site: right forearm; 17:34 Follow up: IV Status: Completed infusion bp 15:49 Drug: NS 0.9% IV 500 ml 500 ml IV at 1 bolus once; to be given as a bolus over 30 bp minutes Volume: 500 ml; Route: IV; Rate: 1 bolus; Site: right forearm; 17:34 Follow up: IV Status: Completed infusion bp 15:53 Drug: Rocephin IV 1 grams IV at calculated rate once; Given slow IV push per pharmacy bp instructions Route: IV; Rate: calculated rate; Site: right forearm; 17:34 Follow up: IV Status: Completed infusion bp 17:15 Drug: Acetaminophen PO 650 mg PO once Route: PO; bp 17:34 Follow up: Response: No adverse reaction bp Disposition Summary: 06/10/24 15:43 Hospitalization Ordered Notes: Hospitalization Status: Inpatient Admission rn Provider: Young Jacobson rn Location: Telemetry/MedSurg (Inpatient) rn Condition: Stable rn Problem: new rn Symptoms: have improved rn Bed/Room Type: Standard rn Room Assignment: 201(06/10/24 17:01) ja1 Diagnosis - Pneumonia, unspecified organism rn - Dyspnea, unspecified rn - Hypoxemia rn Forms: - Medication Reconciliation Form rn - SBAR form rn - Leadership Thank You Letter rn Signatures: Dispatcher [employer] EDMS Abrahan Jacobson MD MD rn Sean Harding RN RN Raad Loco RN RN Pauline Erickson RN RN ld1 Corrections: (The following items were deleted from the chart) 13:08 13:08 BLOOD CULTURE*+BA.LAB.BRZ ordered. EDMS EDMS 13:08 13:08 CBC+H.LAB.BRZ ordered. EDMS EDMS 13:08 13:08 COMPREHENSIVE METABOLIC PANEL+C.LAB.BRZ ordered. EDMS EDMS 13:08 13:08 LACTATE+C.LAB.BRZ ordered. EDMS EDMS 13:08 13:08 PROTIME (+INR)+COAG.LAB.BRZ ordered. EDMS EDMS 13:08 13:08 PTT, ACTIVATED+COAG.LAB.BRZ ordered. EDMS EDMS 17:01 15:43 rn deidre
--- NOTE | 2024-06-10 15:44 | ER ---
Nurse's Notes [facility] Name: Aishwarya Munoz Age: 33 yrs Sex: Female : 1990 Arrival Date: 06/10/2024 Time: 12:46 Bed 19 Private MD: Diagnosis: Pneumonia, unspecified organism;Dyspnea, unspecified;Hypoxemia Presentation: 06/10 13:00 Chief complaint: Patient states: Cough \T\ Shortness of breath since Monday. Coronavirus ld1 screen: At this time, the client does not indicate any symptoms associated with coronavirus-19. Ebola Screen: No symptoms or risks identified at this time. Initial Sepsis Screen: Does the patient meet any 2 criteria? No. Patient's initial sepsis screen is negative. Does the patient have a suspected source of infection? No. Patient's initial sepsis screen is negative. Risk Assessment: Do you want to hurt yourself or someone else? Patient reports no desire to harm self or others. Onset of symptoms was June 10, 2024 at 13:01. 13:00 Method Of Arrival: Ambulatory ld1 13:00 Acuity: REYNA 3 ld1 Triage Assessment: 13:01 General: Appears in no apparent distress. comfortable, Behavior is calm, cooperative, ld1 appropriate for age. Pain: Denies pain. EENT: No signs and/or symptoms were reported regarding the EENT system. Neuro: Level of Consciousness is awake, alert, obeys commands, Oriented to person, place, time, situation. Cardiovascular: Capillary refill < 3 seconds Patient's skin is warm and dry. Respiratory: Reports shortness of breath at rest on exertion cough that is non-productive, Airway is patent Respiratory effort is even, unlabored, Onset: The symptoms/episode began/occurred gradually, the patient has moderate shortness of breath. GI: Abdomen is round obese. : No signs and/or symptoms were reported regarding the genitourinary system. Derm: No signs and/or symptoms reported regarding the dermatologic system. Musculoskeletal: No signs and/or symptoms reported regarding the musculoskeletal system. Historical: - Allergies: 13: No Known Allergies; ld1 - Home Meds: 13: None [Active]; ld1 - PMHx: 13: None; ld1 - PSHx: 13: section; Tonsillectomy; ld1 - Immunization history:: Adult Immunizations up to date. - Infectious Disease History:: Denies. - Social history:: Smoking status: Patient denies any tobacco usage or history of. - Family history:: not pertinent. - Hospitalizations: : No recent hospitalization is reported. Screenin:01 [facility] ED Fall Risk Assessment (Adult) History of falling in the last 3 months, bp including since admission No falls in past 3 months (0 pts) Confusion or Disorientation No (0 pts) Intoxicated or Sedated No (0 pts) Impaired Gait No (0 pts) Mobility Assist Device Used No (0 pt) Altered Elimination No (0 pt) Score/Fall Risk Level 0 - 2 = Low Risk Oriented to surroundings. Abuse screen: Denies threats or abuse. Denies injuries from another. Nutritional screening: No deficits noted. Tuberculosis screening: No symptoms or risk factors identified. Assessment: 13:01 General: Appears in no apparent distress. obese, Behavior is calm, cooperative, bp appropriate for age. Cardiovascular: Rhythm is sinus tachycardia. Respiratory: Airway is patent Respiratory effort is labored, Breath sounds are coarse bilaterally. 17:01 Reassessment: Patient appears in no apparent distress at this time. Patient is alert, bp oriented x 3, equal unlabored respirations, skin warm/dry/pink. 17:20 Reassessment: REPORT FAXED FOR RM 201. bp Vital Signs: 13:00 BP 142 / 90; Pulse 107; Resp 18; Temp 97.5(TE); Pulse Ox 91% on R/A; Weight 185.97 kg; ld1 Height 5 ft. 5 in. ; Pain 0/10; 17:01 BP 137 / 82; Pulse 104; Resp 15; Pulse Ox 93% on R/A; bp 17:58 BP 131 / 81; Pulse 109; Resp 19; Pulse Ox 94% ; bp 13:00 Body Mass Index 68.23 (185.97 kg, 165.1 cm) ld1 13:00 Pain Scale: Adult ld1 ED Course: 12:49 Patient arrived in ED. al6 12:50 Abrahan Jacobson MD is Attending Physician. rn 13:01 Triage completed. ld1 13:01 Arm band placed on right wrist. ld1 13:01 Patient has correct armband on for positive identification. bp 13:01 No provider procedures requiring assistance completed. Inserted saline lock: 22 gauge bp in right forearm, using aseptic technique. Blood collected. Flushed with 10 mL NS. 13:01 Initial lab(s) drawn, by me, sent to lab. EKG done, by ED staff, reviewed by Abrahan Jacobson MD. 13:13 Raad Escalera, RN is Primary Nurse. bp 13:43 XRAY Chest Pa And Lat (2 Views) In Process Unspecified. EDMS 15:42 Young Jacobson MD is Hospitalizing Provider. rn 17:05 Patient admitted, IV remains in place. bp Administered Medications: 15:49 Drug: Zithromax IVPB 500 mg IVPB once over 1 hrs; mix in 250 mL NS Route: IVPB; Infused bp Over: 1 hrs; Site: right forearm; 17:34 Follow up: IV Status: Completed infusion bp 15:49 Drug: NS 0.9% IV 500 ml 500 ml IV at 1 bolus once; to be given as a bolus over 30 bp minutes Volume: 500 ml; Route: IV; Rate: 1 bolus; Site: right forearm; 17:34 Follow up: IV Status: Completed infusion bp 15:53 Drug: Rocephin IV 1 grams IV at calculated rate once; Given slow IV push per pharmacy bp instructions Route: IV; Rate: calculated rate; Site: right forearm; 17:34 Follow up: IV Status: Completed infusion bp 17:15 Drug: Acetaminophen PO 650 mg PO once Route: PO; bp 17:34 Follow up: Response: No adverse reaction bp Medication: 17:35 VIS not applicable for this client. bp Outcome: 15:43 Decision to Hospitalize by Provider. rn 17:05 Admitted to Med/surg accompanied by tech, family with patient, via stretcher, bp 17:05 Condition: stable 17:05 Instructed on the need for admit, 18:05 Patient left the ED. bp Signatures: Dispatcher [employer] EDMS Abrahan Jacobson MD MD rn Peltier, Brian, RN RN Pauline Erickson RN RN ld1 Trang Mcnair6
[2024-06-10] MEDS ORDERED: ALBUTEROL 2.5 MG/3 ML NEB SOL NEB PRN (15:57)
[2024-06-10] MEDS ORDERED: ONDANSETRON 4 MG/2 ML VIAL IV PRN (15:57)
--- NOTE | 2024-06-10 17:00 | P.HP ---
Certification for Inpatient Patient admitted to: Observation With expected LOS: <2 Midnights Patient will require the following post-hospital care: None Practitioner: I am a practitioner with admitting privileges, knowledge of patient current condition, hospital course, and medical plan of care. Services: Services provided to patient in accordance with Admission requirements found in Title 42 Section 412.3 of the Code of Federal Regulations Patient History Date of Service: 06/10/24 Reason for admission: Dyspnea, hypoxia History of Present Illness: Otherwise healthy 33-year-old female presented to the emergency department chief complaint of shortness of breath. She reports that her symptoms started on the evening of the with subjective chills, dyspnea which had worsened the nature over the course of the last 24 hours. She reports she is unable to lie flat or sleep given worsening dyspnea, cough. Patient evaluated in the ER her white blood cell count was 4.1 chest x-ray was negative for acute findings she was negative for flu and COVID. Patient with tachycardia, tachypnea, dyspnea in setting to fevers, there is concern for early pneumonia and her room air sats did drop during her stay in the ER. ED provider wishes to admit under observation for suspected early pneumonia, dyspnea. Patient does admit to vaping daily Allergies No Known Allergies Allergy (Unverified 01/15/24 12:13) Home Medications: Guaifen W/Codeine Syrup [ROBITUSSIN A-C Syrup*] 10 ml PO QID PRN 5 Days #200 ml 01/17/24 Guaifen W/Codeine Syrup [ROBITUSSIN A-C Syrup] 10 ml PO QID PRN 5 Days #200 ml 01/17/24 - Past Medical/Surgical History Diabetic: No -: Morbid obesity BMI 67 -: Vape use -: -: Tonsillectomy Psychosocial/ Personal History: Lives at home with family - Social History Alcohol use: No CD- Drugs: No Caffeine use: Yes Place of Residence: Home Review of Systems 10-point ROS is otherwise unremarkable General: Chills Respiratory: Cough, Shortness of Breath Physical Examination - Physical Exam General: Alert, In no apparent distress, Obese HEENT: Atraumatic, Mucous membr. moist/pink, EOMI Neck: Supple, 2+ carotid pulse no bruit, No LAD Respiratory: Clear to auscultation bilaterally Cardiovascular: Regular rate/rhythm, Normal S1 S2 Gastrointestinal: Normal bowel sounds, No tenderness Musculoskeletal: No tenderness Integumentary: No rashes Neurological: Normal speech, Normal strength at 5/5 x4 extr, Normal affect - Studies Laboratory Data (last 24 hrs) 06/10/24 06/10/24 06/10/24 14:00 14:00 14:00 WBC 4.10 L Hgb 13.2 Hct 39.4 Plt Count 389 PT 12.9 INR 1.14 APTT 31.0 Sodium 136 Potassium 3.4 L BUN 9 Creatinine 0.80 Glucose 124 H Total Bilirubin 0.3 AST 22 ALT 36 Alkaline Phosphatase 78 Assessment and Plan - Plan Assessment: Dyspnea, hypoxia suspect early pneumonia Vaporizer use Morbid obesity Plan: Dyspnea, hypoxia suspect early pneumonia Continue antibiotics, as needed nebulizer treatments Monitor sats, room air sats in the morning Vaporizer use Counseled on need for cessation Morbid obesity DVT PPX: Lovenox Code status: Full Discharge Plan: Home Plan to discharge in: 48 Hours - Advance Directives Does patient have a Living Will: No Does patient have a Durable POA for Healthcare: No - Code Status/Comfort Care Code Status Assessed: Yes (Full code) Critical Care: No Time Spent Managing Pts Care (In Minutes): 67
[2024-06-10] MEDS ORDERED: ACETAMINOPHEN 325 MG TABLET ONE (17:08)
[2024-06-10 19:21] VITALS: BMI 70.3
[2024-06-10] MEDS: BENZONATATE 100 MG CAP PO PRN (23:14)
[2024-06-11] MEDS: MELATONIN 5 MG TABLET PO PRN (00:09)
[2024-06-11 04:52] LABS: Absolute Basophils 0.1 K/uL (0-0.5); Absolute Eosinophils 0.2 K/uL (0-0.5); Absolute Lymphocytes (CBC) 1.8 K/uL (0.7-4.9); Absolute Monocytes 0.8 K/uL (0.1-1.3); Absolute Neutrophil 4.2 K/uL (1.8-8.0); Basophils % 0.9 % (0-1.3); Eosinophils % 3.4 % (0-4.4); Hematocrit 37.7 % (36.0-45.0); Hemoglobin 12.7 g/dL (12.0-15.0); Lymphocytes % 25.7 % (15.3-44.8); MCH 26.4 pg (27.0-35.0); MCHC 33.7 g/dL (32.0-36.0); MCV 78.3 fL (80-100); MPV 7.1 fL (7.6-11.3); Monocytes % 10.9 % (3.3-12.3); Neutrophils % 59.1 % (41.7-73.7); Platelets 391 thou/uL (152-406); RBC Red Blood Cell Count 4.82 M/uL (3.86-4.86); Red Cell Distribution Width 14.6 % (12.1-15.2)
[2024-06-11 05:05] LABS: Anion Gap 8.7 mEq/L (5.0-15.0); Potassium 3.7 mEq/L (3.5-5.1)
[2024-06-11] MEDS ORDERED: KCL 20 MEQ/100 mL IVPB 20 MEQ/100 ML BAG IV SCH (06:00)
[2024-06-11] MEDS: POTASSIUM 25 MEQ EFFERV TAB PO ONE (06:04)
[2024-06-11] MEDS: CEFTRIAXONE 1,000 MG in NA CHLORIDE 0.9% 50 ML IVPB SCH (09:33)
[2024-06-11] MEDS: ENOXAPARIN 40 MG/0.4 ML SQ SCH (09:33)
[2024-06-11] MEDS: ACETAMINOPHEN 325 MG TABLET PO PRN (09:33)
[2024-06-11] MEDS: AZITHROMYCIN IV 500 MG in NA CHLORIDE 0.9% 250 ML IVPB SCH (09:34)
--- NOTE | 2024-06-11 11:47 | EKG ---
Test Date: 2024-06-10 Test Time: 14:13:53 Electrical Engineering Technologist: CHARLY MEASUREMENT RESULTS: Intervals: Rate: 104 ME: 162 QRSD: 82 QT: 338 QTc: 444 Edgar: P: 57 ME: 162 QRS: 70 T: 27 INTERPRETIVE STATEMENTS: Sinus tachycardia Otherwise normal ECG No previous ECG available for comparison Electronically Signed On 06-11-24 11:45:46 CDT by Elder Vasquez
--- NOTE | 2024-06-11 11:54 | P.DS ---
Admission Date: 06/10/24 Discharge Date: 06/11/24 Reason for Admission: Dyspnea, hypoxia Brief History of Present Illness: Otherwise healthy 33-year-old female presented to the emergency department chief complaint of shortness of breath. She reports that her symptoms started on the evening of the with subjective chills, dyspnea which had worsened the nature over the course of the last 24 hours. She reports she is unable to lie flat or sleep given worsening dyspnea, cough. Patient evaluated in the ER her white blood cell count was 4.1 chest x-ray was negative for acute findings she was negative for flu and COVID. Patient with tachycardia, tachypnea, dyspnea in setting to fevers, there is concern for early pneumonia and her room air sats did drop during her stay in the ER. ED provider wishes to admit under observation for suspected early pneumonia, dyspnea. Patient does admit to vaping daily Hospital Course: Patient was admitted to the hospital under observation for suspected early pneumonia/bronchitis. She is done well overnight, this morning she has maintained on room air without any significant dyspnea or hypoxia. Patient stable for discharge outpatient follow-up at this time prescriptions for Zithromax, doxycycline and albuterol inhaler sent to her pharmacy. Please follow-up with your primary care doctor in 1 to 2 weeks You should be vaping as it is harmful to your lungs <Philip Meneses - Last Filed: 06/11/24 11:53> Admission Date: 06/10/24 Discharge Date: 06/16/24 Hospital Course: Discharge diagnosis Dyspnea, hypoxia suspect early pneumonia Vaporizer use Morbid obesity <anita anders - Last Filed: 06/16/24 18:20> Disposition: ROUTINE DISCHARGE Discharge Condition: GOOD Vital Signs/Physical Exam: Temp Pulse Resp BP Pulse Ox 98.2 F 102 H 23 H 123/73 93 06/11/24 08:00 06/11/24 08:00 06/11/24 08:00 06/11/24 08:00 06/11/24 08:00 General: Alert, In no apparent distress, Oriented x3 HEENT: Atraumatic, PERRLA Neck: Supple, JVD not distended Respiratory: Clear to auscultation bilaterally, Normal air movement Cardiovascular: Regular rate/rhythm, Normal S1 S2 Gastrointestinal: Normal bowel sounds, No tenderness Musculoskeletal: No tenderness Integumentary: No rashes Neurological: Normal speech, Normal affect Laboratory Data at Discharge: WBC 7.10 thou/uL (4.3-10.9) 06/11/24 04:27 Hgb 12.7 g/dL (12.0-15.0) 06/11/24 04:27 Hct 37.7 % (36.0-45.0) 06/11/24 04:27 Plt Count 391 thou/uL (152-406) 06/11/24 04:27 PT 12.9 SECONDS (10-13.0) 06/10/24 14:00 INR 1.14 06/10/24 14:00 APTT 31.0 SECONDS (27.2-37.4) 06/10/24 14:00 Sodium 135 mEq/L (136-145) L 06/11/24 04:27 Potassium 3.7 mEq/L (3.5-5.1) 06/11/24 04:27 BUN 10 mg/dL (7-18) 06/11/24 04:27 Creatinine 0.74 mg/dL (0.55-1.02) 06/11/24 04:27 Glucose 117 mg/dL (74-106) H 06/11/24 04:27 Total Bilirubin 0.3 mg/dL (0.2-1.0) 06/10/24 14:00 AST 22 U/L (15-37) 06/10/24 14:00 ALT 36 U/L (13-56) 06/10/24 14:00 Alkaline Phosphatase 78 U/L (45-117) 06/10/24 14:00 <Philip Meneses - Last Filed: 06/11/24 11:53> Vital Signs/Physical Exam: Temp Pulse Resp BP Pulse Ox 97.5 F 109 H 19 131/81 93 06/11/24 19:48 06/11/24 19:52 06/11/24 19:52 06/11/24 19:52 06/11/24 08:00 Laboratory Data at Discharge: WBC 7.10 thou/uL (4.3-10.9) 06/11/24 04:27 Hgb 12.7 g/dL (12.0-15.0) 06/11/24 04:27 Hct 37.7 % (36.0-45.0) 06/11/24 04:27 Plt Count 391 thou/uL (152-406) 06/11/24 04:27 PT 12.9 SECONDS (10-13.0) 06/10/24 14:00 INR 1.14 06/10/24 14:00 APTT 31.0 SECONDS (27.2-37.4) 06/10/24 14:00 Sodium 135 mEq/L (136-145) L 06/11/24 04:27 Potassium 3.7 mEq/L (3.5-5.1) 06/11/24 04:27 BUN 10 mg/dL (7-18) 06/11/24 04:27 Creatinine 0.74 mg/dL (0.55-1.02) 06/11/24 04:27 Glucose 117 mg/dL (74-106) H 06/11/24 04:27 Total Bilirubin 0.3 mg/dL (0.2-1.0) 06/10/24 14:00 AST 22 U/L (15-37) 06/10/24 14:00 ALT 36 U/L (13-56) 06/10/24 14:00 Alkaline Phosphatase 78 U/L (45-117) 06/10/24 14:00 <anita anders - Last Filed: 06/16/24 18:20> Diet: Regular Activity: Ad anita Time spent managing pt's care (in minutes): 48 <Philip Meneses - Last Filed: 06/11/24 11:53> <anita anders - Last Filed: 06/16/24 18:20> Home Medications: Albuterol Inhaler [Ventolin Inhaler*] 2 puff IH Q6H PRN #2 in 06/11/24 Azithromycin Tab [Zithromax*] 250 mg PO DAILY #4 tab 06/11/24 Doxycycline Hyclate 100 mg PO BID #8 tab 06/11/24 New Medications: Doxycycline Hyclate 100 mg PO BID #8 tab Albuterol Inhaler [Ventolin Inhaler*] 2 puff IH Q6H PRN #2 in PRN Reason: Shortness Of Breath Azithromycin Tab [Zithromax*] 250 mg PO DAILY #4 tab Physician Discharge Instructions: Patient was admitted to the hospital under observation for suspected early pneumonia/bronchitis. She is done well overnight, this morning she has maintained on room air without any significant dyspnea or hypoxia. Patient stable for discharge outpatient follow-up at this time prescriptions for Zithromax, doxycycline and albuterol inhaler sent to her pharmacy. Please follow-up with your primary care doctor in 1 to 2 weeks You should be not vape as it is harmful to your lungs Followup: NONE,NONE [Primary Care Provider] - 1-2 Weeks
[2024-06-11 19:50] VITALS: TEMP 97.5
[2024-06-11 19:54] VITALS: BP 131/81; O2SAT 94
== END 2024-06-11 12:20 | disposition home or self-care (01) ==
LOC: ER 12:46 → ERHOLD 15:57 → 2ND 17:30
PROVIDERS: ADMIT Hospitalist; ATTEND Internal Medicine
DX: R06.00 Dyspnea, unspecified (principal); R09.02 Hypoxemia; R05.9 Cough, unspecified; R00.0 Tachycardia, unspecified; R50.9 Fever, unspecified; E66.01 Morbid (severe) obesity due to excess calories; Z68.44 Body mass index [BMI] 60.0-69.9, adult; F17.290 Nicotine dependence, other tobacco product, uncomplicated; Z11.52 Encounter for screening for COVID-19
CPT/HCPCS: 36415; 71046; 80048; 80053; 83605; 84145; 85025; 85610; 85730; 87040; 87428; 93005; 96365; 99285; G0378; J0696; J1650; J3480; J7040; J7050

== ENCOUNTER 2024-11-07 11:33 | Emergency (ER) | payer SELFPAY ==
--- OUTSIDE RECORDS SUMMARY | 2024-11-07 11:36 | XMS REPORT | Continuity of Care Document ---
Author Name Unknown Address [address] [facility] [place], [place] [id number] [place] [address] Address [address] [facility] [place] [address] Care Team Providers Care Foundry Manager Name Role Phone PCP, PATIENT DOES [...] Date Expirati on Date Source [facility] MEDICAID [id number] 2019 00:00:00 Allergies, Adverse Reactions, Alerts Allergy Name Allergy Type Status Severity Reaction(s) Onset Date Inactive Date Treating Clinician Comments Source NO KNOWN ALLERGIE S Drug Class Active [facility] Encounters Start Date/Time End Date/Time Encounter Type Admission Type Attending Clinicians Care Facility Care Department Encounter ID Source 2020-12-11 07:28:39 Outpatient P [facility] [id number] [facility] 2020-12-11 07:28:02 Outpatient P [facility] [id number] [facility] 2020-12-11 00:26:53 Outpatient P [facility] [id number] [facility] 2024-01-08 11:00:00 2024-01-08 11:00:00 Outpatient BINDU CHAIDEZ [facility] [id number] [facility] 2024-01-05 09:30:00 2024-01-05 09:30:00 Outpatient R JOSUE QUACH VIEN [facility] [id number] [facility] 2020-04-13 10:30:00 2020-04-13 10:30:00 Outpatient R GONZALOCHANCY [facility] [id number] [facility] 2019-10-14 11:15:00 2019-10-14 11:15:00 Outpatient R MELVIN SÁNCHEZ [facility] [id number] [facility] 2019-09-30 10:45:00 2019-09-30 10:45:00 Outpatient R PHILOMENA JOSUE [facility] [id number] [facility] 2019-09-27 14:15:00 2019-09-27 14:15:00 Outpatient R JOSUE QUACH [facility] [id number] [facility] 2019-09-24 14:30:00 2019-09-24 14:30:00 Outpatient R [facility] [id number] [facility] 2019-09-09 14:15:00 2019-09-09 14:15:00 Outpatient R [facility] [id number] [facility] 2019-09-04 15:15:00 2019-09-04 15:15:00 Outpatient R JOSUE QUACH [facility] [id number] [facility] 2019-08-28 11:15:00 2019-08-28 11:15:00 Outpatient R MELVIN SÁNCHEZ [facility] [id number] [facility] 2019-08-22 11:00:00 2019-08-22 11:00:00 Outpatient R [facility] [id number] [facility] 2019-08-20 13:00:00 2019-08-20 13:00:00 Outpatient JOSUE LYNCH [facility] [id number] [facility] 2019-08-02 11:30:00 2019-08-02 11:30:00 Outpatient R MELVIN SÁNCHEZ [facility] [id number] [facility] 2019-07-24 11:51:00 2019-07-24 15:00:00 Outpatient P JOSUE QUACH [facility] [id number] [facility] 2019-07-24 11:15:00 2019-07-24 11:15:00 Outpatient R JOSUE QUACH [facility] [id number] [facility] 2019-07-17 13:00:00 2019-07-17 13:00:00 Outpatient R PHILOMENA JOSUE [facility] [id number] [facility] 2019-07-01 11:30:00 2019-07-01 11:30:00 Outpatient R MELVIN SÁNCHEZ [facility] [id number] [facility] 2019-06-25 13:15:00 2019-06-25 13:15:00 Outpatient R MELVIN SÁNCHEZ [facility] [id number] [facility] 2019-06-14 11:00:00 2019-06-14 11:00:00 Outpatient R [facility] [id number] [facility] 2019-05-23 13:15:00 2019-05-23 13:15:00 Outpatient R MELVIN SÁNCHEZ [facility] [id number] [facility] 2019-05-20 10:00:00 2019-05-20 10:00:00 Outpatient P [facility] [id number] [facility] 2019-05-17 14:00:00 2019-05-17 14:00:00 Outpatient P [facility] [id number] [facility] 2019-05-10 11:00:00 2019-05-10 11:00:00 Outpatient P [facility] [id number] [facility] 2019-05-09 10:40:00 2019-05-09 10:40:00 Outpatient R JULITA ZARCO [facility] [id number] [facility] 2019-05-08 18:45:00 2019-05-08 18:45:00 Outpatient R CORINE CHAPA [facility] [id number] [facility] 2019-05-03 14:00:00 2019-05-03 14:00:00 Outpatient P [facility] [id number] [facility] 2019-04-25 13:15:00 2019-04-25 13:15:00 Outpatient JOSUE LYNCH [facility] [id number] [facility]
[2024-11-07 12:36] LABS: Absolute Lymphocytes (CBC) 2.1 K/uL (0.7-4.9); Hematocrit 42.4 % (36.0-45.0); Hemoglobin 14.1 g/dL (12.0-15.0); MCH 26.3 pg (27.0-35.0); MCHC 33.2 g/dL (32.0-36.0); MCV 79.2 fL (80-100); MPV 7.3 fL (7.6-11.3); Nucleated RBC Absolute Count 0.0 (0-0); Nucleated Red Blood Cells % 0.2 % (0-0); RBC Red Blood Cell Count 5.36 M/uL (3.86-4.86); White Blood Count 9.70 thou/uL (4.3-10.9)
[2024-11-07 12:56] LABS: ALT/SGPT 82.0 U/L (13-56); AST/SGOT 50.0 U/L (15-37); Albumin 3.0 g/dL (3.4-5.0); Albumin/Globulin Ratio 0.6 (1.1-1.8); Alkaline Phosphatase 84.0 U/L (45-117); Anion Gap 8.2 mEq/L (5.0-15.0); BUN Blood Urea Nitrogen 8.0 mg/dL (7-18); Globulin 4.9 g/dL (2.3-3.5); Glucose Level 112.0 mg/dL (74-106); Lipase 30.0 U/L (13-75); Potassium 3.2 mEq/L (3.5-5.1)
[2024-11-07] MEDS ORDERED: KETOROLAC 30 MG/ML INJ ONE (13:16)
[2024-11-07] MEDS ORDERED: ONDANSETRON 4 MG/2 ML VIAL ONE (13:16)
[2024-11-07] MEDS ORDERED: FAMOTIDINE 20 MG/2 ML VIAL IV ONE (13:16)
[2024-11-07] MEDS ORDERED: NA CHLORIDE 0.9% 1,000 ML ONE (13:16)
--- NOTE | 2024-11-07 13:40 | RAD REPORT ---
EXAMINATION: CT ABDOMEN AND PELVIS WITH CONTRAST CLINICAL INDICATION: ABD PAIN TECHNIQUE: CT abdomen and pelvis was performed, after the administration of IV contrast, as per [facility] protocol. Axial, sagittal and coronal reconstructions were obtained. One or more of the following dose reduction techniques were used: Automated exposure control, adjustment of the mA and k V according to patient size, and iterative reconstruction. Unless otherwise specified, incidental findings do not require dedicated imaging follow-up. COMPARISON: No prior exam. FINDINGS: LOWER CHEST: The visualized lung bases are clear. LIVER: Mild fatty liver is present. No focal lesion or biliary dilatation is seen. Grossly unremark able gallbladder. SPLEEN: Normal size. No focal lesion. PANCREAS: No mass, ductal dilation, or joce-pancreatic fluid. ADRENALS: Normal; no mass. KIDNEYS: Normal size and contour. No hydronephrosis. 14 mm cyst along the cortex of the left kidney. GASTROINTESTINAL TRACT: No evidence of free air, significant intra-abdominal free fluid, bowel obstru ction or abscess. APPENDIX: Normal appendix. LYMPH NODES: No lymphadenopathy. MUSCULOSKELETAL: Mild multilevel spinal degenerative changes. ADDITIONAL FINDINGS: None. IMPRESSION: No acute abnormalities seen in the abdomen or pelvis. Prominent diffuse fatty liver.
[2024-11-07] MEDS ORDERED: POTASSIUM 25 MEQ EFFERV TAB ONE (14:05)
--- NOTE | 2024-11-07 14:50 | ER ---
Nurse's Notes [facility] Name: Aishwarya Munoz Age: 34 yrs Sex: Female : 1990 Arrival Date: 11/07/2024 Time: 11:33 Bed 12 Private MD: Diagnosis: Upper abdominal pain, unspecified Presentation: 11/07 11:44 Chief complaint: Patient states: LUQ pain that started on Monday and has since began to vt1 radiate to RUQ with some intermittent n/v. "sharp/cramping" 4/10 now, 10/10 at worst. Has been taking semiglutide since July but hasnt taken it in 2 weeks. Coronavirus screen: Vaccine status: Patient reports being unvaccinated. Ebola Screen: No symptoms or risks identified at this time. Initial Sepsis Screen: Does the patient meet any 2 criteria? HR > 90 bpm. Does the patient have a suspected source of infection? No. Patient's initial sepsis screen is negative. Risk Assessment: Do you want to hurt yourself or someone else? Patient reports no desire to harm self or others. Onset of symptoms was November 04, 2024. 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 - Infectious Disease History:: Denies. - Social history:: Smoking status: Reported history of juuling and/or vaping. Screenin:00 [facility] ED Fall Risk Assessment (Adult) History of falling in the last 3 months, aa5 including since admission No falls in past 3 months (0 pts) Confusion or Disorientation No (0 pts) Intoxicated or Sedated No (0 pts) Impaired Gait No (0 pts) Mobility Assist Device Used No (0 pt) Altered Elimination No (0 pt) Score/Fall Risk Level 0 - 2 = Low Risk Oriented to surroundings, Maintained a safe environment, Educated pt \\T\\ family on fall prevention, incl call for assistance when getting out of bed, Assessed \\T\\ reinforced patient's understanding of fall precautions. Abuse screen: Denies threats or abuse. Nutritional screening: No deficits noted. Tuberculosis screening: No symptoms or risk factors identified. Assessment: 13:00 General: Appears comfortable, obese, Behavior is calm, cooperative. Pain: Complains of aa5 pain in left upper quadrant Pain radiates to right upper quadrant Pain currently is 5 out of 10 on a pain scale. Quality of pain is described as crampy, sharp, Pain began 2-3 days ago. Is intermittent. Neuro: Level of Consciousness is awake, alert, obeys commands, Oriented to person, place, time, situation. Cardiovascular: Patient's skin is warm and dry. Respiratory: Airway is patent Respiratory effort is even, unlabored, Respiratory pattern is regular, symmetrical. GI: Abdomen is obese, Bowel sounds present X 4 quads. Abd is soft X 4 quads Reports nausea, vomiting. : No signs and/or symptoms were reported regarding the genitourinary system. EENT: No signs and/or symptoms were reported regarding the EENT system. Derm: Skin is pink, warm \\T\\ dry. Musculoskeletal: Range of motion: intact in all extremities. 14:18 Reassessment: Patient is alert, oriented x 3, equal unlabored respirations, skin aa5 warm/dry/pink. 15:20 Reassessment: Patient is alert, oriented x 3, equal unlabored respirations, skin aa5 warm/dry/pink. Vital Signs: 11:44 BP 141 / 104; Pulse 109; Resp 19; Temp 98.4; Pulse Ox 100% ; Weight 173.73 kg; Height 5 me1 ft. 5 in. ; Pain 4/10; 11:44 Body Mass Index 63.73 (173.73 kg, 165.1 cm) me1 11:44 Pain Scale: Adult me1 ED Course: 11:38 Patient arrived in ED. cj3 11:38 Doreen Townsend PA-C is PHCP. sb4 11:38 Abrahan Jacobson MD is Attending Physician. sb4 11:47 Triage completed. me1 11:48 Arm band placed on Patient placed in waiting room. me1 12:30 Initial lab(s) drawn, by can labeler, sent to lab. Inserted saline lock: 20 gauge in right ts3 antecubital area, using aseptic technique. Blood collected. Flushed with 10 mL NS. 12:50 Nelson Deluca Jr, RN is Primary Nurse. nh2 13:00 Patient has correct armband on for positive identification. Bed in low position. Call aa5 light in reach. Side rails up X2. Adult w/ patient. 13:10 CT Abd/Pelvis - IV Contrast Only In Process Unspecified. EDMS 13:28 No provider procedures requiring assistance completed. aa5 14:50 Tristian Lu MD is Referral Physician. sb4 15:20 IV discontinued, intact, bleeding controlled, No redness/swelling at site. Pressure aa5 dressing applied. Administered Medications: 13:15 Drug: Famotidine IVP 20 mg IVP once; dilute with 10 mL 0.9% NaCl; give over 2 minutes aa5 Route: IVP; Site: right antecubital; 13:25 Follow up: Response: No adverse reaction aa5 13:15 Drug: Ondansetron IVP 4 mg IVP once; over 2 minutes Route: IVP; Site: right antecubital;aa5 13:25 Follow up: Response: No adverse reaction aa5 13:15 Drug: NS 0.9% IV 1000 ml IV at 1 bolus Per protocol; to be given as a bolus over 60 aa5 minutes Route: IV; Rate: 1 bolus; Site: right antecubital; 15:20 Follow up: IV Status: Completed infusion; IV Intake: 1000ml aa5 13:17 Drug: TORadol - Ketorolac IVP 15 mg IVP once Route: IVP; Site: right antecubital; aa5 13:25 Follow up: Response: No adverse reaction aa5 14:18 Drug: Potassium PO Effervescent Tablet 50 mEq PO once; dissolve in 4 ounces of water or nh2 juice Route: PO; 15:20 Follow up: Response: No adverse reaction aa5 Medication: 13:28 VIS not applicable for this client. aa5 Intake: 15:20 IV: 1000ml; Total: 1000ml. aa5 Outcome: 14:50 Discharge ordered by . sb4 15:20 Discharged to home ambulatory, with family, aa5 15:20 Condition: stable 15:20 Discharge instructions given to patient, Instructed on discharge instructions, follow up and referral plans. medication usage, Demonstrated understanding of instructions, follow-up care, medications, Prescriptions given X 2, 15:22 Patient left the ED. aa5 Signatures: Dispatcher [employer] Brooklynn Avery, RN RN aa5 Doreen Townsend, PA-C PA-C sb4 Tessie Asif RN RN me1 Nelson Deluca Jr, RN RN nh2 Manisha Post 3 Arron Duvalsha 3
--- NOTE | 2024-11-07 14:50 | EDPHYS ---
Physician Documentation [facility] Name: Aishwarya Munoz Age: 34 yrs Sex: Female : 1990 Arrival Date: 11/07/2024 Time: 11:33 Bed 12 Private MD: ED Physician Abrahan Jacobson HPI: 11/07 11:47 This 34 yrs old Female presents to ER via Unassigned with complaints of Abdominal Pain. sb4 11:52 Patient reports abdominal pain for about 4 days now. She states that it started in her sb4 left upper quadrant but is traveled over to her epigastric region. She states that she has been on semaglutide for about 3 months now, but has not had her injection in 2 weeks now. Does report some nausea and had an episode of vomiting. No diarrhea, no constipation. Called her PCP but is out of town and instructed to go to the ED. 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 - Infectious Disease History:: Denies. - Social history:: Smoking status: Reported history of juuling and/or vaping. ROS: 11:52 Constitutional: Negative for fever, chills, and weight loss, sb4 11:52 Abdomen/GI: Positive for abdominal pain, nausea and vomiting, 11:52 All other systems are negative, Exam: 11:52 Head/Face: Normocephalic, atraumatic. Eyes: Extra-ocular motions intact. Periorbital sb4 areas with no swelling, redness, or edema. ENT: Mucous membranes moist. Cardiovascular: Regular rate and rhythm with a normal S1 and S2. Respiratory: No increased work of breathing, no retractions or nasal flaring. Skin: Warm, dry with normal turgor. Normal color with no rashes, no lesions, and no evidence of cellulitis. 11:52 Constitutional: The patient appears alert, awake, obese, uncomfortable, 11:52 Abdomen/GI: Palpation: mild abdominal tenderness, in the epigastric area, right upper quadrant and left upper quadrant, Vital Signs: 11:44 BP 141 / 104; Pulse 109; Resp 19; Temp 98.4; Pulse Ox 100% ; Weight 173.73 kg; Height 5 me1 ft. 5 in. ; Pain 4/10; 11:44 Body Mass Index 63.73 (173.73 kg, 165.1 cm) me1 11:44 Pain Scale: Adult me1 MDM: 11:44 Medical Screening Exam initiated sb4 11:53 Differential diagnosis: cholecystitis, Cholelithiasis, gastritis, gastroesophageal sb4 reflux disease, non-specific abd pain, pancreatitis, Peptic Ulcer Disease. 17:05 Data reviewed: vital signs, nurses notes, lab test result(s), radiologic studies, and sb4 as a result, I will discharge patient. Care significantly affected by the following chronic conditions: Obesity, Liver Disease. Counseling: I had a detailed discussion with the patient and/or guardian regarding the historical points, exam findings, and any diagnostic results supporting the discharge/admit diagnosis, lab results, radiology results, the need for outpatient follow up, for definitive care, to return to the emergency department if symptoms worsen or persist or if there are any questions or concerns that arise at home. Special discussion: Based on the patient's Hx, exam, and Dx evaluation, there is no indication for emergent surgery or inpatient Tx. It is understood by the patient/guardian that if the Sx's persist or worsen they need to return immediately for re-evaluation. 11/07 11:45 Order name: CBC with Diff; Complete Time: 12:38 sb4 11/07 11:45 Order name: CMP; Complete Time: 12:57 sb4 11/07 11:45 Order name: Lipase; Complete Time: 12:57 sb4 11/07 11:45 Order name: Test, Serum; Complete Time: 12:53 sb4 11/07 11:48 Order name: CT Abd/Pelvis - IV Contrast Only; Complete Time: 13:41 sb4 11/07 11:45 Order name: IV Saline Lock; Complete Time: 12:30 sb4 11/07 11:45 Order name: Labs collected and sent; Complete Time: 12:30 sb4 Administered Medications: 13:15 Drug: Famotidine IVP 20 mg IVP once; dilute with 10 mL 0.9% NaCl; give over 2 minutes aa5 Route: IVP; Site: right antecubital; 13:25 Follow up: Response: No adverse reaction aa5 13:15 Drug: Ondansetron IVP 4 mg IVP once; over 2 minutes Route: IVP; Site: right antecubital;aa5 13:25 Follow up: Response: No adverse reaction aa5 13:15 Drug: NS 0.9% IV 1000 ml IV at 1 bolus Per protocol; to be given as a bolus over 60 aa5 minutes Route: IV; Rate: 1 bolus; Site: right antecubital; 15:20 Follow up: IV Status: Completed infusion; IV Intake: 1000ml aa5 13:17 Drug: TORadol - Ketorolac IVP 15 mg IVP once Route: IVP; Site: right antecubital; aa5 13:25 Follow up: Response: No adverse reaction aa5 14:18 Drug: Potassium PO Effervescent Tablet 50 mEq PO once; dissolve in 4 ounces of water or nh2 juice Route: PO; 15:20 Follow up: Response: No adverse reaction aa5 Disposition: 16:47 Co-signature as Attending Physician, Abrahan Jacobson MD I reviewed the patient's care rn provided by the Advanced Practice Provider and agree with the diagnosis and treatment plan. Disposition Summary: 11/07/24 14:50 Discharge Ordered Notes: Location: Home sb4 Problem: new sb4 Symptoms: have improved sb4 Condition: Stable sb4 Diagnosis - Upper abdominal pain, unspecified sb4 Followup: sb4 - With: Tristian Lu MD - When: As needed - Reason: Recheck today's complaints, Re-evaluation by your physician Discharge Instructions: - Discharge Summary Sheet sb4 - Abdominal Pain, Adult sb4 - Pain Without a Known Cause sb4 Forms: - Patient Portal Instructions sb4 - Leadership Thank You Letter sb4 Prescriptions: - Protonix 40 mg Oral Tablet - take 1 tablet ORAL route once daily; 30 tablet; Refills: 0, Product Selection sb4 Permitted - dicyclomine 10 mg Oral capsule - take 1 capsule ORAL route 3 times per day; 20 capsule; Refills: 0, Product sb4 Selection Permitted Signatures: Dispatcher [employer] Abrahan Ortez MD MD rn Calderon, Audri, RN RN aa5 Doreen Townsend PA-C PARocio sb4 Tessie Asif RN RN me1 Yosi Jr, Nelson, RN RN nh2 Corrections: (The following items were deleted from the chart) 11:46 11:46 CBC+H.LAB.BRZ ordered. EDMS EDMS 11:46 11:46 COMPREHENSIVE METABOLIC PANEL+C.LAB.BRZ ordered. EDMS EDMS 11:46 11:46 LIPASE+C.LAB.BRZ ordered. EDMS EDMS 11:46 11:46 TEST, SERUM+SC.LAB.BRZ ordered. EDMS EDMS 11:49 11:49 Abdomen Pelvis W Con+CT.RAD.BRZ ordered. EDMS EDMS
[2024-11-07 15:26] VITALS: BP 141/104; TEMP 98.4; O2SAT 100
== END 2024-11-07 15:22 | disposition home or self-care (01) ==
LOC: ER 11:33
DX: R10.13 Epigastric pain (principal)
CPT/HCPCS: 36415; 74177; 80053; 83690; 84703; 85025; 96361; 96374; 96375; 99284; J1885; J2405; J7030; Q9967